=== PATIENT | female | born 1980 | race Caucasian/White ===

== ENCOUNTER 2019-04-02 12:01 | Emergency (ER) | payer OTHER, BC ==
[~2019-04-02] VITALS: Ht 154.9 cm; Wt 65.8 kg
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
[2019-04-02 13:08] VITALS: BP 130/84
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
--- OUTSIDE RECORDS SUMMARY | 2019-04-02 19:39 | XMS REPORT ---
Author Author Jocelyne Camarillo Organization [facility] Address [address] [place], [place] [address] Care Team Providers Care Detective Private Eye Name Role Phone Jocelyne Camarillo PCP Jocelyne Camarillo PreferredProvider Allergies and Adverse Reactions Name Reaction Notes Tylenol Plan of Treatment Planned Activity Comments Planned Date Planned Time Plan/Goal CBC With Auto Differential 09/09/2016 12:00 AM CMP (comprehensive metabolic panel) 09/09/2016 12:00 AM .Lipid Panel 09/09/2016 12:00 AM TSH 09/09/2016 12:00 AM Cardiovascular stress test 07/30/2017 12:00 AM Medications Active Name Start Date Estimated Completion Date SIG Comments metoprolol succinate 25 mg oral tablet extended release 24 hr 09/02/2017 take 1 tablet (25 mg) by oral route once daily Plavix 75 mg oral tablet 09/02/2017 take 1 tablet (75 mg) by oral route once daily rosuvastatin 20 mg oral tablet 09/02/2017 take 1 tablet (20 mg) by oral route once daily escitalopram oxalate 20 mg oral tablet 05/04/2018 TAKE 1 TABLET BY MOUTH EVERY DAY Voltaren 1 % topical gel 08/26/2018 apply 2 gram to the affected area(s) by topical route 4 times per day Synjardy XR 12.5-1,000 mg oral tablet, IR - ER, biphasic 24hr 09/22/2018 06/19/2019 take 2 tablets by oral route once daily in the morning with a meal for 90 days Lexapro 20 mg oral tablet 10/25/2018 04/23/2019 take 1 tablet (20 mg) by oral route once daily for 90 days Farxiga 10 mg oral tablet 01/03/2019 TAKE 1 TABLET (10 MG) BY ORAL ROUTE ONCE DAILY IN THE MORNING fenofibrate 160 mg oral tablet 01/05/2019 TAKE 1 TABLET (160 MG) BY ORAL ROUTE ONCE DAILY FOR 30 DAYS Trulicity 0.75 mg/0.5 mL subcutaneous pen injector 01/25/2019 INJECT 0.5 ML BY SUBCUTANEOUS ROUTE EVERY 7 DAYS IN THE ABDOMEN, THIGH, UPPER ARM ROTATING SITES meloxicam 15 mg oral tablet 03/11/2019 take 1 tablet (15 mg) by oral route once daily doxycycline hyclate 100 mg oral tablet 03/16/2019 03/30/2019 take 1 tablet by oral route 2 times a day for 14 days Name Start Date Expiration Date SIG Comments Zithromax Z-Nick 250 mg oral tablet 07/19/2010 07/24/2010 take 2 tablets (500 mg) by oral route once daily for 1 day then 1 tablet (250 mg) by oral route once daily for 4 days permethrin 5 % topical cream 07/12/2017 apply (thoroughly massage into skin from head to soles of feet) by topical route once leave on for 8-14 hr, then remove by thorough washing aspirin 81 mg oral tablet,chewable 07/30/2017 08/29/2017 chew 1 tablet (81 mg) by oral route once daily for 30 days diclofenac sodium 75 mg oral tablet,delayed release (DR/EC) 08/26/2018 09/25/2018 take 1 tablet (75 mg) by oral route 2 times per day for 30 days Zyrtec 10 mg oral tablet 09/08/2018 10/08/2018 take 1 tablet (10 mg) by oral route once daily for 30 days Flonase Allergy Relief 50 mcg/actuation nasal spray,suspension 09/08/2018 09/22/2018 spray 1 spray (50 mcg) in each nostril by intranasal route once daily for 14 days Discontinued Name Start Date Discontinued Date SIG Comments ibuprofen 800 mg oral tablet 09/13/2010 03/27/2011 take 1 tablet (800 mg) by oral route 3 times a day Ultram 50 mg oral tablet 09/13/2010 03/27/2011 take 1 tablet (50 mg) by oral route 4 times a day phentermine 37.5 mg oral tablet 09/13/2010 03/27/2011 take 1 tablet (37.5 mg) by oral route once daily before breakfast Treximet 85-500 mg oral tablet 03/27/2011 03/31/2011 take 1 tablet by oral route daily prn headaches and can repeat x 1 in 2 hours sumatriptan succinate 100 mg oral tablet 03/31/2011 12/21/2015 take 1 tablet (100 mg) by oral route once with fluids as early as possible after the onset of a migraine attack;may repeat after 2 hours if headache returns, not to exceed 200mg in 24hrs buspirone 7.5 mg oral tablet 12/21/2015 12/24/2015 take 1 tablet (7.5 mg) by oral route 2 times per day for 6 days escitalopram oxalate 10 mg oral tablet 03/26/2016 TAKE ONE TABLET BY MOUTH ONCE DAILY Xanax 0.25 mg oral tablet 09/09/2016 07/12/2017 take 1 tablet by oral route daily as needed doxycycline monohydrate 100 mg oral tablet 04/30/2017 07/12/2017 take 1 tablet (100 mg) by oral route every 12 hours for 7 days mupirocin 2 % topical ointment 04/30/2017 07/12/2017 apply a small amount to the affected area by topical route 3 times per day for 5 days Medrol (Nick) 4 mg oral tablets,dose pack 07/12/2017 07/28/2017 take as directed Crestor 20 mg oral tablet 07/30/2017 09/02/2017 take 1 tablet (20 mg) by oral route once daily at bedtime for 30 days Synjardy XR 25-1,000 mg oral tablet, IR - ER, biphasic 24hr 09/02/2017 09/02/2017 take 1 tablet by oral route once daily in the morning with a meal Invokamet XR 50-1,000 mg oral tablet, IR - ER, biphasic 24hr 03/23/2018 08/26/2018 TAKE 2 TABLETS BY MOUTH ONCE DAILY IN THE MORNING WITH A MEAL change to Synjardy due to Insurance Problem List Description Status Onset Anxiety Active 09/09/2016 Major depressive disorder with single episode, in full remission Active 09/09/2016 Type 2 diabetes mellitus without complication, without long-term current use of insulin Active 09/02/2017 Hypertriglyceridemia Active 09/02/2017 CAD (coronary artery disease) Active 09/02/2017 Vital Signs Date Time BP-Sys(mm[Hg] BP-Juliette(mm[Hg]) HR(bpm) RR(rpm) Temp WT HT HC BMI BSA BMI Percentile O2 Sat(%) 03/08/2019 2:22:00 PM 130 mmHg 72 mmHg 95 bpm 18 rpm 97.9 F 153 lbs 61 in 28.9088 kg/m 1.7283 m 98 % 09/08/2018 5:20:00 PM 136 mmHg 76 mmHg 86 bpm 98.8 F 160 lbs 61 in 30.23 kg/m2 1.77 m2 97 % 08/26/2018 11:25:00 AM 128 mmHg 66 mmHg 81 bpm 18 rpm 98.1 F 158.2 lbs 61 in 29.8913 kg/m 1.7574 m 98 % 09/02/2017 11:06:00 AM 128 mmHg 76 mmHg 92 bpm 18 rpm 96.6 F 158.125 lbs 61 in 29.88 kg/m2 1.76 m2 97 % 07/30/2017 9:56:00 AM 121 mmHg 67 mmHg 93 bpm 18 rpm 97.3 F 158 lbs 61 in 29.8535 kg/m 1.7563 m 96 % 07/28/2017 10:13:00 AM 123 mmHg 72 mmHg 87 bpm 18 rpm 97.6 F 158 lbs 61 in 29.85 kg/m2 1.76 m2 97 % 07/12/2017 1:24:00 PM 101 bpm 97.1 F 156.375 lbs 96 % 04/30/2017 11:37:00 AM 136 mmHg 84 mmHg 97 bpm 18 rpm 97.5 F 156 lbs 61 in 29.4756 kg/m 1.7451 m 97 % 09/09/2016 8:34:00 AM 126 mmHg 70 mmHg 84 bpm 18 rpm 97.4 F 161.375 lbs 61 in 30.49 kg/m2 1.77 m2 96 % 03/26/2016 10:54:00 AM 130 mmHg 72 mmHg 99 bpm 18 rpm 98.9 F 161.125 lbs 61 in 30.444 kg/m 1.7736 m 97 % 12/24/2015 9:53:00 AM 130 mmHg 90 mmHg 90 bpm 16 rpm 97.3 F 157 lbs 61 in 29.66 kg/m2 1.75 m2 99 % 12/21/2015 5:03:00 PM 162 mmHg 90 mmHg 105 bpm 20 rpm 98.4 F 156 lbs 61 in 29.4756 kg/m 1.7451 m 98 % 09/13/2010 1:28:00 PM 132 mmHg 72 mmHg 68 bpm 16 rpm 97.7 F 161.5 lbs 61 in 30.51 kg/m2 1.78 m2 05/22/2010 1:35:00 PM 128 mmHg 84 mmHg 64 bpm 16 rpm 98.2 F 168.125 lbs Social History Name Description Comments Tobacco Never smoker No Tobacco Use 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 History of Procedures Date Ordered Description Order Status 07/28/2017 12:00 AM COMPLETE CBC W/AUTO DIFF WBC Reviewed 07/28/2017 12:00 AM COMPREHEN METABOLIC PANEL Reviewed 07/28/2017 12:00 AM LIPID PANEL Reviewed 07/28/2017 12:00 AM GLYCOSYLATED HEMOGLOBIN TEST Reviewed 07/28/2017 12:00 AM ASSAY OF TROPONIN QUANT Reviewed 07/28/2017 12:00 AM ELECTROCARDIOGRAM TRACING Reviewed 07/28/2017 12:00 AM ASSAY THYROID STIM HORMONE Reviewed 09/08/2018 12:00 AM CULTURE SCREEN ONLY Returned 09/08/2018 6:19 PM STREP A ASSAY W/OPTIC Reviewed 03/08/2019 12:00 AM COMPLETE CBC W/AUTO DIFF WBC Returned 03/08/2019 12:00 AM COMPREHEN METABOLIC PANEL Returned 03/08/2019 12:00 AM Tick Panel Returned 03/08/2019 12:00 AM C-REACTIVE PROTEIN Returned 03/08/2019 12:00 AM Toradol 60 Mg Injection Reviewed Results Summary Date and Description Results 09/08/2018 6:19 PM STREPTOCOCCUS, GROUP A CULTURE negative History Of Immunizations Not available. History of Past Illness Name Date of Onset Comments *No known medical problems Pain in joint; lower leg/knee May 22 2010 1:35PM Lumbago Sep 13 2010 1:28PM Dietary Counseling Sep 13 2010 1:28PM Exercise Counseling Sep 13 2010 1:28PM Anxiety 09/09/2016 Major depressive disorder with single episode, in full remission 09/09/2016 Type 2 diabetes mellitus without complication, without long-term current use of insulin 09/02/2017 Hypertriglyceridemia 09/02/2017 CAD (coronary artery disease) 09/02/2017 Anxiety as acute reaction to exceptional stress Dec 21 2015 5:05PM Elevated blood pressure Dec 24 2015 9:58AM Anxiety Dec 24 2015 9:58AM Other depression Mar 26 2016 10:56AM Screening for ischemic heart disease Sep 09 2016 8:25AM Major depressive disorder with single episode, in full remission Sep 09 2016 8:25AM Anxiety Sep 09 2016 8:25AM Other fatigue Sep 09 2016 8:25AM Skin infection Apr 30 2017 11:38AM Dermatitis Jul 12 2017 1:26PM Other chest pain Jul 28 2017 10:14AM Chronic fatigue Jul 28 2017 10:14AM Hyperglycemia Jul 28 2017 10:14AM Family history of early CAD Jul 28 2017 10:14AM Anxiety Jul 28 2017 10:14AM Major depressive disorder with single episode, in full remission Jul 28 2017 10:14AM Other chest pain Jul 30 2017 9:59AM Diabetes Mellitus, Type II Jul 30 2017 9:59AM Hypertriglyceridemia Jul 30 2017 9:59AM Family history of [place] (myocardial infarction) Jul 30 2017 9:59AM Dizziness Jul 30 2017 9:59AM Fatigue, unspecified type Jul 30 2017 9:59AM Type 2 diabetes mellitus without complication, without long-term current use of insulin Sep 02 2017 11:07AM Anxiety Sep 02 2017 11:07AM Hypertriglyceridemia Sep 02 2017 11:07AM CAD (coronary artery disease) Sep 02 2017 11:07AM Diabetes Mellitus, Type II Aug 26 2018 11:27AM Acute pain of left knee Aug 26 2018 11:27AM Hypertriglyceridemia Aug 26 2018 11:27AM Type 2 diabetes mellitus without complication, without long-term current use of insulin Aug 26 2018 11:27AM Acute nasopharyngitis Sep 08 2018 5:22PM Sore throat Sep 08 2018 5:22PM Fever Mar 08 2019 2:25PM Neck pain Mar 08 2019 2:25PM Headache Mar 08 2019 2:25PM Bitten or stung by nonvenomous insect and other nonvenomous arthropods, initial encounter Mar 08 2019 2:25PM Payers Insurance Name Company Name Plan Name Plan Number Policy Number Policy Group Number Start Date [facility] [id number] N/A [facility] [id number] Friday, 2009 History of Encounters Visit Date Visit Type Provider 03/08/2019 Office visit Jocelyne Camarillo APRN 09/08/2018 Office visit Radha Andrade LOAN CONSULTANT 08/26/2018 Office visit Jocelyne Camarillo APRN 09/02/2017 Office visit Jocelnye Camarillo APRN 07/30/2017 [facility] Priscilla Orosco MD 07/30/2017 Office visit 07/30/2017 Office visit Jocelyne Camarillo APRN 07/28/2017 Office visit Jocelyne Camarillo APRN 07/12/2017 Office visit Edvin Leos NP 04/30/2017 Office visit Jocelyne Camarillo APRN 09/09/2016 Office visit Jocelyne Camarillo APRN 03/26/2016 Office visit Jocelyne Camarillo LOAN CONSULTANT 12/24/2015 Office visit Jocelyne Camarillo LOAN CONSULTANT 12/21/2015 Office visit Kleber Baker PA-C 09/13/2010 Office visit Camilla RANGEL 05/22/2010 Office visit Camilla RANGEL 07/20/2009 Office visit Joseluis Moore MD 06/15/2009 Surgery Joseluis Moore MD 06/04/2009 Voided Joseluis Moore MD 05/30/2009 Laboratory Padmini Nur MD 05/29/2009 Office visit Joseluis Moore MD 05/25/2009 Office visit Joseluis Moore MD 05/24/2009 Office visit Camilla RANGEL 05/15/2009 Office visit Ashleigh Murillo MD
--- OUTSIDE RECORDS SUMMARY | 2019-04-02 19:40 | XMS REPORT ---
Author Author Jocelyne Camarillo Organization [facility] Address [address] [place], [place] [id number] Care Team Providers Care Barrel Scraper Name Role Phone Jocelyne Camarillo PCP Jocelyne [...] (20 mg) by oral route once daily Trulicity 0.75 mg/0.5 mL subcutaneous pen injector 09/02/2017 inject 0.5 milliliter (0.75 mg) by subcutaneous route every 7 days in the abdomen, thigh, or upper arm rotating injection sites escitalopram oxalate 20 mg oral tablet 05/04/2018 TAKE 1 TABLET BY MOUTH EVERY DAY fenofibrate 160 mg oral tablet 07/19/2018 TAKE 1 TABLET (160 MG) BY ORAL ROUTE ONCE DAILY FOR 30 DAYS Lexapro 20 mg oral tablet 08/02/2018 10/31/2018 take 1 tablet (20 mg) by oral route once daily for 90 days diclofenac sodium 75 mg oral tablet,delayed release (DR/EC) 08/26/2018 09/25/2018 take 1 tablet (75 mg) by oral route 2 times per day for 30 days Voltaren 1 % topical gel 08/26/2018 apply 2 gram to the affected area(s) by topical route 4 times per day Synjardy XR 12.5-1,000 mg oral tablet, IR - ER, biphasic 24hr 08/26/2018 05/23/2019 take 2 tablets by oral route once daily in the morning with a meal for 90 days Name Start Date Expiration Date SIG [...] oral route once daily for 30 days Discontinued Name Start Date Discontinued Date [...] HC BMI BSA BMI Percentile O2 Sat(%) 08/26/2018 11:25:00 AM 128 mmHg 66 mmHg [...] No Tobacco Use 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 History Of Immunizations Not available. History of [...] Jul 30 2017 9:59AM Family history of [place] (myocardial infarction) Jul 30 2017 9:59AM Dizziness [...] use of insulin Aug 26 2018 11:27AM Payers Insurance Name Company Name Plan Name Plan Number Policy Number Policy Group Number Start Date [facility] [place] [id number] N[id number] Friday, 2009 History of Encounters Visit Date Visit Type Provider 08/26/2018 Office visit Jocelyne Camarillo APRN 09/02/2017 Office visit Jocelyne Camarillo APRN 07/30/2017 [facility] Priscilla Orosco MD 07/30/2017 Office visit 07/30/2017 Office visit Jocelyne Camarillo GAS PIPE LAYER 07/28/2017 Office visit Jocelyne Camarillo GAS PIPE LAYER 07/12/2017 Office visit Edvin Leos NP 04/30/2017 Office visit Jocelyne Camarillo GAS PIPE LAYER 09/09/2016 Office visit Jocelyne Camarillo GAS PIPE LAYER 03/26/2016 Office visit Jocelyne Camarillo GAS PIPE LAYER 12/24/2015 Office visit Jocelyne Camarillo GAS PIPE LAYER 12/21/2015 Office visit Kleber MENAC 09/13/2010 Office visit Camilla RANGEL 05/22/2010 Office visit Camilla RANGEL 07/20/2009 Office visit Joseluis Moore MD 06/15/2009 Surgery Joseluis Moore MD 06/04/2009 Voided Joseluis Moore MD 05/30/2009 Laboratory Padmini Nur MD 05/29/2009 Office visit Joseluis Moore MD 05/25/2009 Office visit Joseluis Moore MD 05/24/2009 Office visit Camilla RANGEL 05/15/2009 Office visit Ashleigh Murillo MD
--- OUTSIDE RECORDS SUMMARY | 2019-04-02 19:40 | XMS REPORT ---
Author Author Jocelyne Camarillo Organization 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 History of Procedures Date Ordered Description Order [...] COMPREHEN METABOLIC PANEL Returned 03/08/2019 12:00 AM C-REACTIVE PROTEIN Returned Results Summary Date and Description Results 09/08/2018 [...] Jul 30 2017 9:59AM Family history of [place] (myocardial infarction) Jul 30 2017 9:59AM Dizziness [...] Number Policy Group Number Start Date [facility] [id number] [facility] [id number] Friday, 2009 History of Encounters Visit Date Visit Type Provider 03/08/2019 Office visit Jocelyne Camarillo APRN 09/08/2018 Office visit Radha Andrade AUTOMOTIVE SALES EXECUTIVE 08/26/2018 Office visit Jocelyne Camarillo AUTOMOTIVE SALES EXECUTIVE 09/02/2017 Office visit Jocelyne Camarillo APRN 07/30/2017 [facility] Priscilla Orosco MD 07/30/2017 Office visit 07/30/2017 Office visit Jocelyne Camarillo AUTOMOTIVE SALES EXECUTIVE 07/28/2017 Office visit Jocelyne Camarillo APRN 07/12/2017 Office visit dEvin Leos NP 04/30/2017 Office visit Jocelyne Camarillo AUTOMOTIVE SALES EXECUTIVE 09/09/2016 Office visit Jocelyne Camarillo AUTOMOTIVE SALES EXECUTIVE 03/26/2016 Office visit Jocelyne Camarillo APRN 12/24/2015 Office visit Jocelyne Camarillo APRN 12/21/2015 Office visit Kleber Baker PA-C 09/13/2010 [...]
--- OUTSIDE RECORDS SUMMARY | 2019-04-02 19:40 | XMS REPORT ---
Author Author Radha Andrade [facility] Address [address] [place], [place] [address] Care Team Providers Care Endodontist Name Role Phone Radha Andrade PCP Jocelyne Camarillo PreferredProvider Allergies and Adverse Reactions Name Reaction Notes Tylenol Plan of Treatment Planned Activity Comments Planned Date Planned Time Plan/Goal CBC With Auto Differential 09/09/2016 12:00 AM CMP (comprehensive metabolic panel) 09/09/2016 12:00 AM .Lipid Panel 09/09/2016 12:00 AM TSH 09/09/2016 12:00 AM Cardiovascular stress test 07/30/2017 12:00 AM Throat culture and sensitivity 09/08/2018 12:00 AM Medications Active Name Start Date [...] morning with a meal for 90 days Zyrtec 10 mg oral tablet 09/08/2018 10/08/2018 take 1 tablet (10 mg) by oral route once daily for 30 days Flonase Allergy Relief 50 mcg/actuation nasal spray,suspension 09/08/2018 09/22/2018 spray 1 spray (50 mcg) in each nostril by intranasal route once daily for 14 days Name Start Date Expiration [...] HC BMI BSA BMI Percentile O2 Sat(%) 09/08/2018 5:20:00 PM 136 mmHg 76 mmHg 86 bpm 98.8 F 160 lbs 61 in 30.2314 kg/m 1.7674 m 97 % 08/26/2018 11:25:00 AM 128 mmHg 66 mmHg 81 bpm 18 rpm 98.1 F 158.2 lbs 61 in 29.89 kg/m2 1.76 m2 98 % 09/02/2017 11:06:00 AM 128 mmHg 76 mmHg 92 bpm 18 rpm 96.6 F 158.125 lbs 61 in 29.8772 kg/m 1.757 m 97 % 07/30/2017 9:56:00 AM 121 mmHg 67 mmHg 93 bpm 18 rpm 97.3 F 158 lbs 61 in 29.85 kg/m2 1.76 m2 96 % 07/28/2017 10:13:00 AM 123 mmHg [...] No Tobacco Use Living with significant other Programs Assistant History of Procedures Date Ordered Description Order Status 07/28/2017 12:00 AM COMPLETE CBC W/AUTO DIFF WBC Reviewed 07/28/2017 12:00 AM COMPREHEN METABOLIC PANEL Reviewed 07/28/2017 12:00 AM LIPID PANEL Reviewed 07/28/2017 12:00 AM GLYCOSYLATED HEMOGLOBIN TEST Reviewed 07/28/2017 12:00 AM ASSAY OF TROPONIN QUANT Reviewed 07/28/2017 12:00 AM ELECTROCARDIOGRAM TRACING Reviewed 07/28/2017 12:00 AM ASSAY THYROID STIM HORMONE Reviewed 09/08/2018 6:19 PM STREP A ASSAY W/OPTIC Reviewed Results Summary Date and Description Results [...] Jul 30 2017 9:59AM Family history of [place] (myocardial infarction) Jul 30 2017 9:59AM Dizziness [...] 5:22PM Sore throat Sep 08 2018 5:22PM Payers Insurance Name Company Name Plan Name Plan Number Policy Number Policy Group Number Start Date [employer] [facility] [place] [id number] N/A [employer] [facility] [facility] [place] [id number] Friday, 2009 History of Encounters Visit Date Visit Type Provider 09/08/2018 Office visit Radha Andrade ORACLE APEX DEVELOPER 08/26/2018 Office visit Jocelyne Camarillo ORACLE APEX DEVELOPER 09/02/2017 Office visit Jocelyne Camarillo ORACLE APEX DEVELOPER 07/30/2017 [facility] Priscilla Orosco MD 07/30/2017 Office visit 07/30/2017 Office visit Jocelyne Camarillo ORACLE APEX DEVELOPER 07/28/2017 Office visit Jocelyne Camarillo ORACLE APEX DEVELOPER 07/12/2017 Office visit Edvin Leos NP 04/30/2017 Office visit Jocelyne Camarillo ORACLE APEX DEVELOPER 09/09/2016 Office visit Jocelyne Camarillo ORACLE APEX DEVELOPER 03/26/2016 Office visit Jocelyne Camarillo ORACLE APEX DEVELOPER 12/24/2015 Office visit Jocelyne Camarillo ORACLE APEX DEVELOPER 12/21/2015 Office visit Kleber Baker PA-C 09/13/2010 Office visit Camilla RANGEL 05/22/2010 Office visit Camilla RANGEL 07/20/2009 Office visit Joseluis Moore MD 06/15/2009 Surgery Joseluis oMore MD 06/04/2009 Voided Joseluis Moore MD 05/30/2009 Laboratory Padmini Nur MD 05/29/2009 Office visit Joseluis Moore MD 05/25/2009 Office visit Joseluis Moore MD 05/24/2009 Office visit Camilla RANGEL 05/15/2009 Office visit Ashleigh Murillo MD
--- OUTSIDE RECORDS SUMMARY | 2019-04-02 19:41 | XMS REPORT ---
Author Author Jocelyne Camarillo Organization [facility] Address [address] [place], [place] [id number] Care Team Providers Care Adjunct Instructor Name Role Phone Jocelyne Camarillo PCP Unavailable Allergies and Adverse Reactions Name Reaction Notes Tylenol Plan of Treatment Not available. Medications Active Name Start Date Estimated Completion Date SIG Comments Lexapro 10 mg oral tablet 12/24/2015 take 1 tablet by oral route daily Xanax 0.25 mg oral tablet 12/24/2015 take 1 tablet by oral route daily as needed Name Start Date Expiration Date SIG Comments Zithromax Z-Nick 250 mg oral tablet 07/19/2010 07/24/2010 take 2 tablets (500 mg) by oral route once daily for 1 day then 1 tablet (250 mg) by oral route once daily for 4 days Discontinued Name Start Date Discontinued Date [...] 2 times per day for 6 days Problem List Not available. Vital Signs Date Time BP-Sys(mm[Hg] BP-Juliette(mm[Hg]) HR(bpm) RR(rpm) Temp WT HT HC BMI BSA BMI Percentile O2 Sat(%) 12/24/2015 9:53:00 AM 130 mmHg 90 mmHg [...] No Tobacco Use Living with significant other Assistant Women'S Tennis Coach History of Procedures Not available. Results Summary Not available. History Of Immunizations Not available. History of Past Illness Name Date of Onset Comments *No known medical problems Pain in joint; lower leg/knee May 22 2010 1:35PM Lumbago Sep 13 2010 1:28PM Dietary Counseling Sep 13 2010 1:28PM Exercise Counseling Sep 13 2010 1:28PM Anxiety as acute reaction to exceptional stress Dec 21 2015 5:05PM Elevated blood pressure Dec 24 2015 9:58AM Anxiety Dec 24 2015 9:58AM Payers Insurance Name Company Name Plan Name Plan Number Policy Number Policy Group Number Start Date [facility] [id number] N/A [facility] [id number] Friday, 2009 History of Encounters Visit Date Visit Type Provider 12/24/2015 Office visit Jocelyne Camarillo SLITTING AND SHIPPING SUPERVISOR 12/21/2015 Office visit Kleber Baker PA-C 09/13/2010 [...]
--- OUTSIDE RECORDS SUMMARY | 2019-04-02 19:41 | XMS REPORT ---
Author Author Jocelyne Camarillo Organization [facility] Address [address] [place], [place] [address] Care Team Providers Care License Registration Examiner Name Role Phone Jocelyne Camarillo PCP Jocelyne Camarillo PreferredProvider Allergies and Adverse Reactions Name Reaction Notes Tylenol Plan of Treatment Planned Activity Comments Planned Date Planned Time Plan/Goal CBC With Auto Differential 09/09/2016 12:00 AM CMP (comprehensive metabolic panel) 09/09/2016 12:00 AM .Lipid Panel 09/09/2016 12:00 AM TSH 09/09/2016 12:00 AM EKG. 07/28/2017 12:00 AM Cardiovascular stress test 07/30/2017 12:00 AM Medications Active Name Start Date Estimated Completion Date SIG Comments fenofibrate 160 mg oral tablet 07/30/2017 take 1 tablet (160 mg) by oral route once daily for 30 days Lexapro 20 mg oral tablet 07/30/2017 take 1 tablet (20 mg) by oral route once daily for 90 days metoprolol succinate 25 mg oral tablet extended [...] thigh, or upper arm rotating injection sites Invokamet XR 50-1,000 mg oral tablet, IR - ER, biphasic 24hr 09/02/2017 take 2 tablets by oral route once daily in the morning with a meal for 30 days Name Start Date Expiration Date SIG [...] daily in the morning with a meal Problem List Description Status Onset Anxiety Active 09/09/2016 Major depressive disorder with single episode, in full remission Active 09/09/2016 Type 2 diabetes mellitus without complication, without long-term current use of insulin Active 09/02/2017 Hypertriglyceridemia Active 09/02/2017 CAD (coronary artery disease) Active 09/02/2017 Vital Signs Date Time BP-Sys(mm[Hg] BP-Juliette(mm[Hg]) HR(bpm) RR(rpm) Temp WT HT HC BMI BSA BMI Percentile O2 Sat(%) 09/02/2017 11:06:00 AM 128 mmHg 76 mmHg [...] No Tobacco Use Living with significant other Fruit Receiver History of Procedures Date Ordered Description Order Status 07/28/2017 12:00 AM COMPLETE CBC W/AUTO DIFF WBC Returned 07/28/2017 12:00 AM COMPREHEN METABOLIC PANEL Returned 07/28/2017 12:00 AM LIPID PANEL Returned 07/28/2017 12:00 AM GLYCOSYLATED HEMOGLOBIN TEST Returned 07/28/2017 12:00 AM ASSAY OF TROPONIN QUANT Returned 07/28/2017 12:00 AM ASSAY THYROID STIM HORMONE Returned Results Summary Not available. History Of Immunizations [...] Jul 30 2017 9:59AM Family history of [place] (myocardial infarction) Jul 30 2017 9:59AM Dizziness Jul 30 2017 9:59AM Fatigue, unspecified type Jul 30 2017 9:59AM Type 2 diabetes mellitus without complication, without long-term current use of insulin Sep 02 2017 11:07AM Anxiety Sep 02 2017 11:07AM Hypertriglyceridemia Sep 02 2017 11:07AM CAD (coronary artery disease) Sep 02 2017 11:07AM Payers Insurance Name Company Name Plan Name Plan Number Policy Number Policy Group Number Start Date [facility] [place] [id number] N/A [facility] [place] [id number] Friday, 2009 History of Encounters Visit Date Visit Type Provider 09/02/2017 Office visit Jocelyne Camarillo APRN 07/30/2017 [facility] Priscilla Orosco MD 07/30/2017 Office visit 07/30/2017 Office visit Jocelyne Camarillo APRN 07/28/2017 Office visit Jocelyne Camarillo APRN 07/12/2017 Office visit Edvin Leos NP 04/30/2017 Office visit Jocelyne Camarillo APRN 09/09/2016 Office visit Jocelyne Camarillo APRN 03/26/2016 Office visit Jocelyne Camarillo APRN 12/24/2015 [...]
--- OUTSIDE RECORDS SUMMARY | 2019-04-02 19:41 | XMS REPORT ---
Author Author Jocelyne Camarillo Organization [facility] Address [address] [place], [place] [id number] Care Team Providers Care Vacuum Pan Operator Name Role Phone Jocelyne Camarillo PCP Unavailable Jocelyne Camarillo PreferredProvider Unavailable Allergies and Adverse Reactions Name Reaction Notes Tylenol Plan of Treatment Planned Activity Comments Planned Date Planned Time Plan/Goal CBC With Auto Differential 09/09/2016 12:00 AM CMP (comprehensive metabolic panel) 09/09/2016 12:00 AM .Lipid Panel 09/09/2016 12:00 AM TSH 09/09/2016 12:00 AM Medications Active Name Start Date Estimated Completion Date SIG Comments Lexapro 10 mg oral tablet 03/26/2016 03/21/2017 take 1 tablet by oral route daily for 90 days Xanax 0.25 mg oral tablet 09/09/2016 take 1 tablet by oral route daily [...] TAKE ONE TABLET BY MOUTH ONCE DAILY Problem List Description Status Onset Anxiety Active 09/09/2016 Major depressive disorder with single episode, in full remission Active 09/09/2016 Vital Signs Date Time BP-Sys(mm[Hg] BP-Juliette(mm[Hg]) HR(bpm) RR(rpm) Temp WT HT HC BMI BSA BMI Percentile O2 Sat(%) 09/09/2016 8:34:00 AM 126 mmHg 70 mmHg [...] No Tobacco Use Living with significant other 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 Results Summary [...] with single episode, in full remission 09/09/2016 Anxiety as acute reaction to exceptional stress Dec 21 2015 5:05PM Elevated blood pressure Dec 24 2015 9:58AM Anxiety Dec 24 2015 9:58AM Other depression Mar 26 2016 10:56AM Screening for ischemic heart disease Sep 09 2016 8:25AM Major depressive disorder with single episode, in full remission Sep 09 2016 8:25AM Anxiety Sep 09 2016 8:25AM Other fatigue Sep 09 2016 8:25AM Payers Insurance Name Company Name Plan Name Plan Number Policy Number Policy Group Number Start Date [facility] [place] [id number] N/A [facility] [id number] Friday, 2009 History of Encounters Visit Date Visit Type Provider 09/09/2016 Office visit Jocelyne Camarillo APRN 03/26/2016 Office visit Jocelyne Camarillo APRN 12/24/2015 Office visit Jocelyne Camarillo TUBE OPERATOR 12/21/2015 Office visit Kleber Baker PA-C 09/13/2010 Office visit Camilla RANGEL 05/22/2010 Office visit Camilla RANGEL 07/20/2009 Office visit Joselius Moore MD 06/15/2009 Surgery Joseluis Moore MD 06/04/2009 Voided Joseluis Moore MD 05/30/2009 Laboratory Padmini Nur MD 05/29/2009 Office visit Joseluis Moore MD 05/25/2009 Office visit Joseluis Moore MD 05/24/2009 Office visit Camilla RANGEL 05/15/2009 Office visit Ashleigh Murillo MD
--- OUTSIDE RECORDS SUMMARY | 2019-04-02 19:41 | XMS REPORT ---
Author Author Jocelyne Camarillo Organization [facility] Address [address] [place], [place] [phone] Care Team Providers Care Senior Qa Analyst Name Role Phone Jocelyne Camarillo PCP Jocelyne [...] Start Date Estimated Completion Date SIG Comments Crestor 20 mg oral tablet 07/30/2017 take 1 tablet (20 mg) by oral route once daily at bedtime for 30 days fenofibrate 160 mg oral tablet 07/30/2017 take 1 tablet (160 mg) by oral route once daily for 30 days aspirin 81 mg oral tablet,chewable 07/30/2017 08/29/2017 chew 1 tablet (81 mg) by oral route once daily for 30 days Trulicity 0.75 mg/0.5 mL subcutaneous pen injector 07/30/2017 inject 0.5 milliliter (0.75 mg) by subcutaneous route every 7 days in the abdomen, thigh, or upper arm rotating injection sites Synjardy XR 25-1,000 mg oral tablet, IR - ER, biphasic 24hr 07/30/2017 take 1 tablet by oral route once daily in the morning with a meal Lexapro 20 mg oral tablet 07/30/2017 take 1 tablet (20 mg) by oral route once daily for 90 days Name Start Date Expiration [...] 8-14 hr, then remove by thorough washing Discontinued Name Start Date Discontinued Date SIG [...] tablets,dose pack 07/12/2017 07/28/2017 take as directed Problem List Description Status Onset Anxiety Active 09/09/2016 Major depressive disorder with single episode, in full remission Active 09/09/2016 Vital Signs Date Time BP-Sys(mm[Hg] BP-Juliette(mm[Hg]) HR(bpm) RR(rpm) Temp WT HT HC BMI BSA BMI Percentile O2 Sat(%) 07/30/2017 9:56:00 AM 121 mmHg 67 mmHg 93 bpm 18 rpm 97.3 F 158 lbs 61 in 29.85 kg/m2 1.76 m2 96 % 07/28/2017 10:13:00 AM 123 mmHg 72 mmHg 87 bpm 18 rpm 97.6 F 158 lbs 61 in 29.8535 kg/m 1.7563 m 97 % 07/12/2017 1:24:00 PM 101 bpm [...] No Tobacco Use Living with significant other Hospital Corpsman History of Procedures Date Ordered Description Order [...] Jul 30 2017 9:59AM Family history of [place] (myocardial infarction) Jul 30 2017 9:59AM Dizziness Jul 30 2017 9:59AM Fatigue, unspecified type Jul 30 2017 9:59AM Payers Insurance Name Company Name Plan Name Plan Number Policy Number Policy Group Number Start Date [facility] [id number] N/A [facility] [id number] Friday, 2009 History of Encounters Visit Date Visit Type Provider 07/30/2017 Office visit 07/30/2017 Office visit Jocelyne [...]
--- OUTSIDE RECORDS SUMMARY | 2019-04-02 19:41 | XMS REPORT ---
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 Results Summary [...] to exceptional stress Dec 21 2015 5:05PM Payers Insurance Name Company Name Plan Name Plan Number Policy Number Policy Group Number Start Date [facility] [id number] N/A [employer] [id number] Friday, 2009 History of Encounters Visit Date Visit Type Provider 12/24/2015 Office visit Jocelyne Camarillo PRIMER CHARGING TOOL SETTER 12/21/2015 Office visit Kleber Baker PA-C 09/13/2010 [...]
--- OUTSIDE RECORDS SUMMARY | 2019-04-02 19:42 | XMS REPORT ---
Author Author Kleber Baker [facility] Address [address] [place], [place] [phone] Care Team Providers Care Coal Equipment Operator Name Role Phone Kleber Baker PCP Unavailable Allergies and Adverse Reactions Name Reaction Notes Tylenol Plan of Treatment Not available. Medications Active Name Start Date Estimated Completion Date SIG Comments buspirone 7.5 mg oral tablet 12/21/2015 12/27/2015 take 1 tablet (7.5 mg) by oral route 2 times per day for 6 days Name Start Date Expiration Date SIG [...] returns, not to exceed 200mg in 24hrs Problem List Not available. Vital Signs Date Time BP-Sys(mm[Hg] BP-Juliette(mm[Hg]) HR(bpm) RR(rpm) Temp WT HT HC BMI BSA BMI Percentile O2 Sat(%) 12/21/2015 5:03:00 PM 162 mmHg 90 mmHg 105 bpm 20 rpm 98.4 F 156 lbs 61 in 29.48 kg/m2 1.75 m2 98 % 09/13/2010 1:28:00 PM 132 mmHg 72 mmHg 68 bpm 16 rpm 97.7 F 161.5 lbs 61 in 30.5148 kg/m 1.7756 m 05/22/2010 1:35:00 PM 128 mmHg 84 mmHg 64 bpm 16 rpm 98.2 F 168.125 lbs Social History Name Description Comments Tobacco Never smoker No Tobacco Use Living with significant other Binder Stripper Hand History of Procedures Not available. Results Summary [...] Group Number Start Date [facility] [facility] [place] [id number] N/A [facility] [facility] [id number] Friday, 2009 History of Encounters Visit Date Visit Type Provider 12/21/2015 Office visit Kleber Baker PA-C 09/13/2010 [...]
--- OUTSIDE RECORDS SUMMARY | 2019-04-02 19:42 | XMS REPORT ---
Author Author Jocelyne Camarillo Organization [facility] Address [address] [place], [place] [address] Care Team Providers Care Corrugator Helper Name Role Phone Jocelyne Camarillo PCP Unavailable Jocelyne Camarillo PreferredProvider Unavailable Allergies and Adverse Reactions Name Reaction Notes Tylenol Plan of Treatment Planned Activity Comments Planned Date Planned Time Plan/Goal CBC With Auto Differential 09/09/2016 12:00 AM CMP (comprehensive metabolic panel) 09/09/2016 12:00 AM .Lipid Panel 09/09/2016 12:00 AM TSH 09/09/2016 12:00 AM Medications Active Name Start Date Estimated Completion Date SIG Comments Xanax 0.25 mg oral tablet 09/09/2016 take 1 tablet by oral route daily as needed Lexapro 10 mg oral tablet 03/16/2017 09/12/2017 take 1 tablet by oral route daily for 90 days doxycycline monohydrate 100 mg oral tablet 04/30/2017 take 1 tablet (100 mg) by oral route every 12 hours for 7 days mupirocin 2 % topical ointment 04/30/2017 apply a small amount to the affected area by topical route 3 times per day for 5 days Name Start Date Expiration Date SIG [...] HC BMI BSA BMI Percentile O2 Sat(%) 04/30/2017 11:37:00 AM 136 mmHg 84 mmHg 97 bpm 18 rpm 97.5 F 156 lbs 61 in 29.48 kg/m2 1.75 m2 97 % 09/09/2016 8:34:00 AM 126 mmHg 70 mmHg 84 bpm 18 rpm 97.4 F 161.375 lbs 61 in 30.4912 kg/m 1.7749 m 96 % 03/26/2016 10:54:00 AM 130 mmHg 72 mmHg 99 bpm 18 rpm 98.9 F 161.125 lbs 61 in 30.44 kg/m2 1.77 m2 97 % 12/24/2015 9:53:00 AM 130 mmHg 90 mmHg 90 bpm 16 rpm 97.3 F 157 lbs 61 in 29.6646 kg/m 1.7507 m 99 % 12/21/2015 5:03:00 PM 162 mmHg [...] No Tobacco Use Living with significant other 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 Results Summary [...] 8:25AM Skin infection Apr 30 2017 11:38AM Payers Insurance Name Company Name Plan Name Plan Number Policy Number Policy Group Number Start Date [facility] [id number] N/A [employer] [facility] [id number] Friday, 2009 History of Encounters Visit Date Visit Type Provider 04/30/2017 Office visit Jocelyne Camarillo APRN 09/09/2016 Office visit Jocelyne Camarillo APRN 03/26/2016 Office visit Jocelyne Camarillo APRN 12/24/2015 Office visit Jocelyne Camarillo PLANER OFFBEARER 12/21/2015 Office visit Kleber Baker PA-C 09/13/2010 [...]
--- OUTSIDE RECORDS SUMMARY | 2019-04-02 19:42 | XMS REPORT ---
Author Author Jocelyne Camarillo Organization [facility] Address [address] [place], [place] [phone] Care Team Providers Care Rivet Maker Name Role Phone Jocelyne Camarillo PCP Unavailable Allergies and Adverse Reactions Name Reaction Notes Tylenol Plan of Treatment Not available. Medications Active Name Start Date Estimated Completion Date SIG Comments Xanax 0.25 mg oral tablet 12/24/2015 take 1 tablet by oral route daily as needed Lexapro 10 mg oral tablet 03/26/2016 03/21/2017 take 1 tablet by oral route daily for 90 days Name Start Date [...] TABLET BY MOUTH ONCE DAILY Problem List Not available. 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 Results Summary [...] 9:58AM Other depression Mar 26 2016 10:56AM Payers Insurance Name Company Name Plan Name Plan Number Policy Number Policy Group Number Start Date [facility] [id number] N/A [facility] [id number] Friday, 2009 History of Encounters Visit Date Visit Type Provider 03/26/2016 Office visit Jocelyne Camarillo APRN 12/24/2015 Office visit Jocelyne Camarillo APRN 12/21/2015 Office visit Kleber Baker PA-C 09/13/2010 Office visit Camilla RANGEL 05/22/2010 Office visit Camilla RANGEL 07/20/2009 Office visit Joseluis Moore MD 06/15/2009 Surgery Joseluis Moore MD 06/04/2009 Voided Joseluis Moore MD 05/30/2009 Laboratory Padmini uNr MD 05/29/2009 Office visit Joseluis Moore MD 05/25/2009 Office visit Joseluis Moore MD 05/24/2009 Office visit Camilla RANGEL 05/15/2009 Office visit Ashleigh Murillo MD
--- OUTSIDE RECORDS SUMMARY | 2019-04-02 19:42 | XMS REPORT ---
Author Author Jocelyne Camarillo Organization [facility] Address [address] [place], [place] [address] Care Team Providers Care Insurance Claims Assistant Name Role Phone Jocelyne Camarillo PCP Jocelyne Camarillo PreferredProvider Allergies and Adverse Reactions Name Reaction Notes Tylenol Plan of Treatment Planned Activity Comments Planned Date Planned Time Plan/Goal CBC With Auto Differential 09/09/2016 12:00 AM CMP (comprehensive metabolic panel) 09/09/2016 12:00 AM .Lipid Panel 09/09/2016 12:00 AM TSH 09/09/2016 12:00 AM CBC With Auto Differential 07/28/2017 12:00 AM CMP (comprehensive metabolic panel) 07/28/2017 12:00 AM .Lipid Panel 07/28/2017 12:00 AM Hemoglobin A1C 07/28/2017 12:00 AM Troponin I blood 07/28/2017 12:00 AM EKG. 07/28/2017 12:00 AM TSH 07/28/2017 12:00 AM Medications Active Name Start Date Estimated Completion Date SIG Comments Lexapro 10 mg oral tablet 03/16/2017 09/12/2017 [...] HC BMI BSA BMI Percentile O2 Sat(%) 07/28/2017 10:13:00 AM 123 mmHg 72 mmHg [...] No Tobacco Use Living with significant other Ballaster History of Procedures Not available. Results Summary [...] of early CAD Jul 28 2017 10:14AM Payers Insurance Name Company Name Plan Name Plan Number Policy Number Policy Group Number Start Date [facility] [place] [id number] N/A [facility] [place] [id number] Friday, 2009 History of Encounters Visit Date Visit Type Provider 07/28/2017 Office visit Jocelyne Camarillo RN UNIT MANAGER 07/12/2017 Office visit Edvin Leos NP 04/30/2017 Office visit Jocelyne Camarillo RN UNIT MANAGER 09/09/2016 Office visit Jocelyne Camarillo RN UNIT MANAGER 03/26/2016 Office visit Jocelyne Camarillo RN UNIT MANAGER 12/24/2015 Office visit Jocelyne Camarillo RN UNIT MANAGER 12/21/2015 Office visit Kleber Baker PA-C 09/13/2010 [...]
--- OUTSIDE RECORDS SUMMARY | 2019-04-02 19:42 | XMS REPORT ---
Author Author Edvin Leos [facility] Address [address] [place], [place] [id number] Care Team Providers Care Bone Drier Operator Name Role Phone Edvin Leos PCP Unavailable Jocelyne Camarillo PreferredProvider Unavailable Allergies [...] by oral route daily for 90 days Medrol (Nick) 4 mg oral tablets,dose pack 07/12/2017 take as directed permethrin 5 % topical cream 07/12/2017 apply (thoroughly massage into skin from head to soles of feet) by topical route once leave on for 8-14 hr, then remove by thorough washing Name Start Date Expiration Date SIG Comments [...] 3 times per day for 5 days Problem List Description Status Onset Anxiety Active 09/09/2016 Major depressive disorder with single episode, in full remission Active 09/09/2016 Vital Signs Date Time BP-Sys(mm[Hg] BP-Juliette(mm[Hg]) HR(bpm) RR(rpm) Temp WT HT HC BMI BSA BMI Percentile O2 Sat(%) 07/12/2017 1:24:00 PM 101 bpm 97.1 F 156.375 lbs 96 % 04/30/2017 11:37:00 AM 136 mmHg 84 mmHg 97 bpm 18 rpm 97.5 F 156 lbs 61 in 29.48 kg/m2 1.7451 m 97 % 09/09/2016 8:34:00 AM 126 mmHg 70 mmHg 84 bpm 18 rpm 97.4 F 161.375 lbs 61 in 30.4912 kg/m 1.77 m2 96 % 03/26/2016 10:54:00 AM 130 mmHg 72 mmHg 99 bpm 18 rpm 98.9 F 161.125 lbs 61 in 30.44 kg/m2 1.7736 m 97 % 12/24/2015 9:53:00 AM 130 mmHg 90 mmHg 90 bpm 16 rpm 97.3 F 157 lbs 61 in 29.6646 kg/m 1.75 m2 99 % 12/21/2015 5:03:00 PM 162 mmHg 90 mmHg 105 bpm 20 rpm 98.4 F 156 lbs 61 in 29.48 kg/m2 1.7451 m 98 % 09/13/2010 1:28:00 PM 132 mmHg 72 mmHg 68 bpm 16 rpm 97.7 F 161.5 lbs 61 in 30.5148 kg/m 1.7756 m 05/22/2010 1:35:00 PM 128 mmHg 84 mmHg 64 bpm 16 rpm 98.2 F 168.125 lbs Social History Name Description Comments Tobacco Never smoker No Tobacco Use Living with significant other 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 Results Summary [...] 2017 11:38AM Dermatitis Jul 12 2017 1:26PM Payers Insurance Name Company Name Plan Name Plan Number Policy Number Policy Group Number Start Date [facility] [place] [id number] N/A [employer] [facility] [place] [id number] Friday, 2009 History of Encounters Visit Date Visit Type Provider 07/12/2017 Office visit Edvin Leos NP 04/30/2017 Office visit Jocelyne Camarillo TEASEL GIG OPERATOR 09/09/2016 Office visit Jocelyne Camarillo APRN 03/26/2016 Office visit Jocelyne Camarillo APRN 12/24/2015 Office visit Jocelyne Camarillo APRN 12/21/2015 Office visit Kleber Baker PA-C 09/13/2010 Office visit Camilla RANGEL 05/22/2010 Office visit Camilla RANGEL 07/20/2009 Office visit Joseluis Moore MD 06/15/2009 Surgery Joseluis Moore MD 06/04/2009 Voided Joseluis Moore MD 05/30/2009 Laboratory aPdmini Nur MD 05/29/2009 Office visit Joseluis Moore MD 05/25/2009 Office visit Joseluis Moore MD 05/24/2009 Office visit Camilla RANGEL 05/15/2009 Office visit Ashleigh Murillo MD
--- OUTSIDE RECORDS SUMMARY | 2019-04-02 19:43 | XMS REPORT ---
Author Author Jocelyne Camarillo Organization [facility] Address [address] [place], [place] [address] Care Team Providers Care Drier Helper Name Role Phone Jocelyne Camarillo PCP Jocelyne [...] No Tobacco Use Living with significant other Installation & Maintenance Executive History of Procedures Not available. Results Summary [...] in full remission Jul 28 2017 10:14AM Payers Insurance Name Company Name Plan Name Plan Number Policy Number Policy Group Number Start Date [facility] [facility] [place] [id number] N/A [employer] [facility] [place] [id number] Friday, 2009 History of Encounters Visit Date Visit Type Provider 07/28/2017 Office visit Jocelyne Camarillo INSURANCE RISK ANALYST 07/12/2017 Office visit Edvin Leos NP 04/30/2017 Office visit Jocelyne Camarillo INSURANCE RISK ANALYST 09/09/2016 Office visit Jocelyne Camarillo INSURANCE RISK ANALYST 03/26/2016 Office visit Jocelyne Camarillo INSURANCE RISK ANALYST 12/24/2015 Office visit Jocelyne Camarillo INSURANCE RISK ANALYST 12/21/2015 Office visit Kleber Baker PA-C 09/13/2010 [...]
--- OUTSIDE RECORDS SUMMARY | 2019-04-02 19:43 | XMS REPORT | Continuity of Care Document ---
Author Organization Unknown Address Unknown Phone Unavailable Allergies There is no data. Medications There is no data. Problems There is no data. Procedures There is no data. Results There is no data. Encounters ACCT No. Visit Date/Time Discharge Status Pt. Type Provider Facility Loc./Unit Complaint [id number] 03/08/2019 15:09:27 03/08/2019 23:59:59 CLS Outpatient Walker, Jocelyne [id number] 09/10/2018 15:17:27 09/10/2018 23:59:59 CLS Outpatient Carson Suzanne [id number] 08/26/2018 12:18:22 08/26/2018 23:59:59 CLS Outpatient Walker, Jocelyne [id number] 09/02/2017 11:51:34 09/02/2017 23:59:59 CLS Outpatient Walker, Jocelyne [id number] 08/19/2017 14:07:39 08/19/2017 23:59:59 CLS Outpatient Priscilla Orosco [id number] 07/30/2017 10:46:18 07/30/2017 23:59:59 CLS Outpatient Walker, Jocelyne [id number] 07/28/2017 11:04:28 07/28/2017 23:59:59 CLS Outpatient Walker, Jocelyne [id number] 07/12/2017 14:03:01 07/12/2017 23:59:59 CLS Outpatient Edvin Leos [id number] 04/30/2017 12:34:35 04/30/2017 23:59:59 CLS Outpatient Walker, Jocelyne [id number] 09/09/2016 09:31:49 09/09/2016 23:59:59 CLS Outpatient Walker, Jocelyne [id number] 03/26/2016 11:50:03 03/26/2016 23:59:59 CLS Outpatient Walker, Jocelyne
== END 2019-04-02 13:08 | disposition home or self-care (01) ==
LOC: ER 12:03
DX: S60.222A Contusion of left hand, initial encounter (principal); V89.2XXA Person injured in unspecified motor-vehicle accident, traffic, initial encounter
CPT/HCPCS: 73130

== ENCOUNTER 2021-02-07 09:37 | Day surgery (SDC) | payer BC ==
[~2021-02-07] VITALS: Ht 165 cm; Wt 68.0 kg
[2021-02-07] VITALS (10 sets, daily range): BP systolic 84–114; BP diastolic 52–88
--- NOTE | 2021-02-07 09:54 | ED Abdominal Pain ---
General Stated Complaint: SEIZURE,ABD PAIN Source of Information: Patient Exam Limitations: No Limitations History of Present Illness Date Seen by Provider: Feb 07, 2021 Time Seen by Provider: 09:42 Initial Comments Patient presents ER by EMS where she said she was in her car alone when she had a seizure. She says she then called some friends who came over and said maybe she was a little postictal. EMS states she was alert and oriented and answering questions but complaining of abdominal pain and distention has been going on for the past 3 days and that is what she wanted brought to the ER to be checked out for. She has a history of epilepsy. She has not taken medicines nor had a seizure in many years for epilepsy. Patient has a history of hysterectomy and cholecystectomy in the past. She does not feel distended and had a normal bowel movement yesterday. She does not take anything for pain. She says for 3 days has been having pain and distention in her right lower quadrant abdomen without dysuria, discharge, nausea or fever. She rates her pain as a 15 out of 10. Last oral intake was about 7:00 this morning she had a few sips of water. Allergies and Home Medications Allergies Coded Allergies: No Known Drug Allergies (Unverified , 02/07/21) Patient Home Medication List Home Medication List Reviewed: Yes Review of Systems Review of Systems Constitutional: No chills, No diaphoresis EENTM: No Blurred Vision, No Double Vision Respiratory: Denies Cough, Denies Shortness of Air Cardiovascular: Denies Chest Pain, Denies Lightheadedness Gastrointestinal: See HPI; Denies Abdomen Distended; Abdominal Pain; Denies Constipated, Denies Diarrhea, Denies Nausea Genitourinary: Denies Burning, Denies Discharge Musculoskeletal: No back pain, No joint pain Skin: No pruritus, No rash Psychiatric/Neurological: Denies Headache, Denies Numbness All Other Systems Reviewed Negative Unless Noted: Yes Past Sgqopnp-Fgktne-Kiaaku Hx Patient Social History Alcohol Use: Denies Use Smoking Status: Never a Smoker Physical Exam Vital Signs Vital Signs - First Documented 02/07/21 09:39 Temp 36.9 Pulse 75 Resp 18 B/P (MAP) 118/71 (87) Pulse Ox 99 O2 Delivery Room Air Capillary Refill : Height/Weight/BMI Height: 5'1.00" Weight: 145lbs. oz. 65.454174cn; BMI Method:Stated General Appearance: WD/WN, moderate distress HEENT: PERRL/EOMI, pharynx normal Neck: full range of motion, normal inspection Respiratory: lungs clear, normal breath sounds, no respiratory distress, no accessory muscle use Cardiovascular: normal peripheral pulses, regular rate, rhythm Peripheral Pulses: 2+ Radial Pulses (R), 2+ Radial Pulses (L) Gastrointestinal: soft, abnormal bowel sounds (Class), tenderness (Right lower quadrant exquisitely tender to palpation.), other (Negative for psoas sign, Rovsing sign. Modest distention) Extremities: normal inspection, normal capillary refill Neurologic/Psychiatric: alert, oriented x 3, other (Anxious) Skin: normal color, warm/dry Progress/Results/Core Measures Results/Orders Lab Results Laboratory Tests Test 02/07/21 09:47 02/07/21 10:16 Range/Units White Blood Count 11.9 H 4.3-11.0 10^3/uL Red Blood Count 4.97 3.80-5.11 10^6/uL Hemoglobin 14.4 11.5-16.0 g/dL Hematocrit 43 35-52 % Mean Corpuscular Volume 87 80-99 fL Mean Corpuscular Hemoglobin 29 25-34 pg Mean Corpuscular Hemoglobin Concent 34 32-36 g/dL Red Cell Distribution Width 12.9 10.0-14.5 % Platelet Count 298 130-400 10^3/uL Mean Platelet Volume 10.6 9.0-12.2 fL Immature Granulocyte % (Auto) 0 % Neutrophils (%) (Auto) 77 H 42-75 % Lymphocytes (%) (Auto) 14 12-44 % Monocytes (%) (Auto) 7 0-12 % Eosinophils (%) (Auto) 1 0-10 % Basophils (%) (Auto) 1 0-10 % Neutrophils # (Auto) 9.2 H 1.8-7.8 10^3/uL Lymphocytes # (Auto) 1.6 1.0-4.0 10^3/uL Monocytes # (Auto) 0.8 0.0-1.0 10^3/uL Eosinophils # (Auto) 0.2 0.0-0.3 10^3/uL Basophils # (Auto) 0.1 0.0-0.1 10^3/uL Immature Granulocyte # (Auto) 0.0 0.0-0.1 10^3/uL Sodium Level 139 135-145 MMOL/L Potassium Level 4.1 3.6-5.0 MMOL/L Chloride Level 104 98-107 MMOL/L Carbon Dioxide Level 23 21-32 MMOL/L Anion Gap 12 5-14 MMOL/L Blood Urea Nitrogen 10 7-18 MG/DL Creatinine 0.67 0.60-1.30 MG/DL Estimat Glomerular Filtration Rate > 60 BUN/Creatinine Ratio 15 Glucose Level 195 H 70-105 MG/DL Calcium Level 9.1 8.5-10.1 MG/DL Corrected Calcium 9.0 8.5-10.1 MG/DL Total Bilirubin 1.1 H 0.1-1.0 MG/DL Aspartate Amino Transf (AST/SGOT) 21 5-34 U/L Alanine Aminotransferase (ALT/SGPT) 22 0-55 U/L Alkaline Phosphatase 58 40-136 U/L C-Reactive Protein High Sensitivity 6.90 H 0.00-0.50 MG/DL Total Protein 7.3 6.4-8.2 GM/DL Albumin 4.1 3.2-4.5 GM/DL Urine Color YELLOW Urine Clarity CLOUDY Urine pH 6.0 5-9 Urine Specific [place] 1.025 H 1.016-1.022 Urine Protein 1+ H NEGATIVE Urine Glucose (UA) 3+ H NEGATIVE Urine Ketones 1+ H NEGATIVE Urine Nitrite NEGATIVE NEGATIVE Urine Bilirubin NEGATIVE NEGATIVE Urine Urobilinogen 0.2 < = 1.0 MG/DL Urine Leukocyte Esterase TRACE H NEGATIVE Urine RBC (Auto) TRACE-I NEGATIVE Urine RBC 5-10 H /HPF Urine WBC 50-100 H /HPF Urine Squamous Epithelial Cells 25-50 H /HPF Urine Crystals NONE /LPF Urine Bacteria MODERATE H /HPF Urine Casts NONE /LPF Urine Mucus NEGATIVE /LPF Urine Yeast FEW H /HPF Urine Culture Indicated YES My Orders Orders - TERRY PYLE Fentanyl Inj (Sublimaze Injection) (02/07/21 10:00) Ct Abd/Pelv W (Appendicitis) (02/07/21 09:47) Cbc With Automated Diff (02/07/21 09:47) Comprehensive Metabolic Panel (02/07/21 09:47) Hs C Reactive Protein (02/07/21 09:47) Ua Culture If Indicated (02/07/21 09:47) Ed Iv/Invasive Line Start (02/07/21 09:47) Iohexol Injection (Omnipaque 350 Mg/Ml 1 (02/07/21 10:00) Received Contrast (Hold Metformin- Contr (02/07/21 10:00) Sodium Chloride Flush (Catheter Flush Sy (02/07/21 10:00) Ns (Ivpb) (Sodium Chloride 0.9% Ivpb Bag (02/07/21 10:00) Urine Culture (02/07/21 10:16) Morphine Injection (Morphine Injection (02/07/21 11:07) Ondansetron Injection (Zofran Injectio (02/07/21 11:30) Lorazepam Injection (Ativan Injection) (02/07/21 11:30) Medications Given in ED Current Medications Medications Dose Ordered Sig/[place] Route Start Time Stop Time Status Last Admin Dose Admin Fentanyl Citrate 50 mcg ONCE ONCE IVP 02/07/21 10:00 02/07/21 10:01 DC 02/07/21 09:55 50 MCG Iohexol 100 ml ONCE ONCE IV 02/07/21 10:00 02/07/21 10:01 DC 02/07/21 10:50 88 ML Lorazepam 1 mg ONCE ONCE IVP 02/07/21 11:30 02/07/21 11:31 DC 02/07/21 11:30 1 MG Ondansetron HCl 4 mg ONCE ONCE IVP 02/07/21 11:30 02/07/21 11:31 DC 02/07/21 11:29 4 MG Sodium Chloride 100 ml ONCE ONCE IV 02/07/21 10:00 02/07/21 10:01 DC 02/07/21 10:50 80 ML Vital Signs/I&O 02/07/21 09:39 Temp 36.9 Pulse 75 Resp 18 B/P (MAP) 118/71 (87) Pulse Ox 99 O2 Delivery Room Air Progress Progress Note #1: Time: 09:53 Progress Note Fentanyl, continue the liter of fluids initiated by EMS and get some labs including a CRP urinalysis negative CT of the abdomen pelvis. Appendicitis, colitis/diverticulitis, gynecologic ovarian origin versus other. Aseptic vital signs. Progress Note #2: Time: 11:47 Progress Note The fentanyl did not help much so we gave her some morphine 4 mg. Shortly after the morphine was initiated she had a 15-second gran mal seizure. She had a very brief period of postictal phase a few seconds afterwards and then was able to answer questions. We discussed her findings on the CT of appendicitis and she would like to undergo surgery. We discussed her ovarian cysts and how they would need to be worked up in the next month or [address] Garcia and she and her who was present both agreed to follow-up on this. 1 mg Ativan was then ordered since this is the second reported seizure today. Diagnostic Imaging Diagonstic Imaging: CT Plain Films/CT/US/NM/MRI: abdomen, pelvis Comments NAME: SARAH JOHNSON [facility] REC#: [id number] PT STATUS: REG ER : 1980 PHYSICIAN: TERRY PYLE MD ADMIT DATE: 02/07/21/ER Draft Date of Exam:02/07/21 CT ABD/PELV W (APPENDICITIS) PROCEDURE: CT abdomen and pelvis with contrast, rule out appendicitis. TECHNIQUE: Multiple contiguous axial images were obtained through the abdomen and pelvis after the administration of intravenous contrast. All CT scans use one or more of the following dose optimizing techniques: automated exposure control, MA and/or KvP adjustment based on patient size and exam type or iterative reconstruction. INDICATION: Abdominal pain. There are no prior studies available for comparison. FINDINGS: The appendix does appear to be thickened measuring 14 mm (normal 8 mm or less). Furthermore, there is an appendicolith in the base of the appendix and there is considerable distortion of the periappendiceal fat. There is a small amount of fluid about the tip of the enlarged appendix as well. These findings do suggest that there is acute appendicitis. There are also a few fluid-filled segments of small bowel present. These are nonspecific but could be related to a mild ileus perhaps secondary to the suspected appendicitis or to enteritis. The liver is enlarged measuring 26 cm in length. The liver is of lower density than usually seen and this does suggest fatty metamorphosis. There is no focal mass involving the liver. The spleen is prominent but within normal limits. The pancreas, adrenals, kidneys, aorta and inferior vena cava and portal vein are unremarkable for an acute abnormality. By history, the gallbladder is surgically absent. The stomach is distended by fluid and difficult to assess. There may be a small hiatal hernia. Reportedly, the uterus is also surgically absent. However, there are oval areas of diminished density in each adnexa. Specifically, there is a 4.0 x 4.9 cm oval area of diminished density in the left adnexa. There is also a somewhat denser oval lesion in the right adnexa measuring 3.3 x 4.0 cm. The low density lesion of the left is probably a cyst. The low density lesion on the right could be related to a complex cyst or less likely a solid mass. If further evaluation is desired, then ultrasound would be recommended. The lung bases are clear. The bone windows show no sign of a fracture or for destructive lesion. IMPRESSION: 1. The findings would be consistent with acute appendicitis. Surgical consult would be recommended. 2. The fluid-filled segments of small bowel are nonspecific but may be related to an ileus perhaps secondary to the suspected appendicitis or to enteritis. 3. There is hepatomegaly and low density appearance liver does suggest fatty metamorphosis. 4. There appears to be a sizable cyst associated with the left, there may be a complex cyst or solid mass associated with the right ovary. Ultrasound would be recommended for further evaluation when the patient's condition permits. 5. These results will be discussed with Dr. Terry Pyle in the Emergency Room. Dictated on workstation # [id number] Dict: 02/07/21 1110 Trans: 02/07/21 1132 [id number] Interpreted by: RONN BUSCH MD Electronically signed by: Reviewed: Reviewed by Me Departure Communication (Admissions) Time/Spoke to Admitting Phy: 11:25 Discussed the case with Dr. Beasley and he plans to see the patient and likely take her to surgery. He recommends if her appendix has not burst not to start antibiotics at this time. Impression Primary Impression: Appendicitis Qualified Codes: K35.30 - Acute appendicitis with localized peritonitis, without perforation or gangrene Additional Impressions: Epilepsy Qualified Codes: G40.909 - Epilepsy, unspecified, not intractable, without status epilepticus Seizure Ovarian cyst Qualified Codes: N83.201 - Unspecified ovarian cyst, right side; N83.202 - Unspecified ovarian cyst, left side Disposition: 09 ADMITTED INPATIENT Condition: Stable Admissions Decision to Admit Reason: Admit from ER (General) Decision to Admit/Date: Feb 07, 2021 Time/Decision to Admit Time: 11:25 Departure-Patient Inst. Referrals: PAMELA GARCIA (PCP/Family) Primary Care Physician TERRY PYLE Feb 07, 2021 09:54
[2021-02-07 09:55] LABS: BASOPHILS # (AUTO) 0.1 10^3/uL (0.0-0.1); BASOPHILS % (AUTO) 1 % (0-10); EOSINOPHILS # (AUTO) 0.2 10^3/uL (0.0-0.3); EOSINOPHILS % (AUTO) 1 % (0-10); HEMATOCRIT 43 % (35-52); HEMOGLOBIN 14.4 g/dL (11.5-16.0); LYMPHOCYTES # (AUTO) 1.6 10^3/uL (1.0-4.0); LYMPHOCYTES % (AUTO) 14 % (12-44); MEAN CORPUSCULAR HEMOGLOBIN 29 pg (25-34); MEAN CORPUSCULAR HGB CONC 34 g/dL (32-36); MEAN CORPUSCULAR VOLUME 87 fL (80-99); MEAN PLATELET VOLUME 10.6 fL (9.0-12.2); MONOCYTES # (AUTO) 0.8 10^3/uL (0.0-1.0); MONOCYTES % (AUTO) 7 % (0-12); NEUTROPHILS # (AUTO) 9.2 10^3/uL (1.8-7.8); NEUTROPHILS % (AUTO) 77 % (42-75); PLATELET COUNT 298 10^3/uL (130-400); WHITE BLOOD COUNT 11.9 10^3/uL (4.3-11.0)
[2021-02-07] MEDS ORDERED: IOHEXOL 350 MG/ML 100 ML (OMNIPAQUE 350) VIAL IV ONE (10:00)
[2021-02-07] MEDS ORDERED: fentaNYL INJ 100 MCG/2 ML AMP IVP ONE ×2 (10:00→14:45)
[2021-02-07] MEDS ORDERED: CATHETER FLUSH 10 ML SYR IV PRN (10:00)
[2021-02-07] MEDS ORDERED: NS 100 ML (IVPB) BAG IV ONE (10:00)
[2021-02-07] MEDS ORDERED: HOLD METFORMIN - RECEIVED CONTRAST 20 ML VIAL IV SCH (10:00)
[2021-02-07 10:09] LABS: ALBUMIN 4.1 GM/DL (3.2-4.5); CHLORIDE 104 MMOL/L (98-107); POTASSIUM 4.1 MMOL/L (3.6-5.0); SODIUM 139 MMOL/L (135-145)
[2021-02-07 10:10] LABS: CALCIUM 9.1 MG/DL (8.5-10.1)
[2021-02-07 10:12] LABS: GLUCOSE 195 MG/DL (70-105); TOTAL PROTEIN 7.3 GM/DL (6.4-8.2)
[2021-02-07 10:13] LABS: BILIRUBIN,TOTAL 1.1 MG/DL (0.1-1.0); CARBON DIOXIDE 23 MMOL/L (21-32)
[2021-02-07 10:15] LABS: ALKALINE PHOSPHATASE 58 U/L (40-136); CREATININE SERUM 0.67 MG/DL (0.60-1.30); GFR ESTIMATED > 60
[2021-02-07 10:16] LABS: BUN/CREATININE RATIO 15
[2021-02-07 10:18] LABS: ALANINE AMINOTRANSFERASE 22 U/L (0-55)
[2021-02-07 10:20] LABS: BILIRUBIN,URINE NEGATIVE (NEGATIVE); CLARITY,URINE CLOUDY; COLOR,URINE YELLOW; GLUCOSE, URINE (UA) 3+ (NEGATIVE); KETONES,URINE 1+ (NEGATIVE); LEUKOCYTE ESTERASE ,URINE TRACE (NEGATIVE); NITRITE,URINE NEGATIVE (NEGATIVE); PROTEIN,URINE 1+ (NEGATIVE)
[2021-02-07 10:34] LABS: BACTERIA,URINE MODERATE /HPF; SQUAMOUS EPITHELIAL CELL,UR 25-50 /HPF
[2021-02-07 10:35] LABS: YEAST,URINE FEW /HPF
[2021-02-07 10:43] LABS: WBC,URINE 50-100 /HPF
[2021-02-07] MEDS ORDERED: morphine INJ 10 MG/ML 1ML (SYR OR VIAL) IVP STA (11:07)
[2021-02-07] MEDS ORDERED: LORazepam INJ 2 MG/ML (ATIVAN) VIAL IVP ONE (11:30)
[2021-02-07] MEDS ORDERED: ONDANSETRON 4 MG/2 ML (SDV) Z0FRAN IVP ONE (11:30)
--- NOTE | 2021-02-07 11:32 | Diagnostic Imaging Report ---
PROCEDURE: CT abdomen and pelvis with contrast, rule out appendicitis. TECHNIQUE: Multiple contiguous axial images were obtained through the abdomen and pelvis after the administration of intravenous contrast. All CT scans use one or more of the following dose optimizing techniques: automated exposure control, MA and/or KvP adjustment based on patient size and exam type or iterative reconstruction. INDICATION: Abdominal pain. There are no prior studies available for comparison. FINDINGS: The appendix does appear to be thickened measuring 14 mm (normal 8 mm or less). Furthermore, there is an appendicolith in the base of the appendix and there is considerable distortion of the periappendiceal fat. There is a small amount of fluid about the tip of the enlarged appendix as well. These findings do suggest that there is acute appendicitis. There are also a few fluid-filled segments of small bowel present. These are nonspecific but could be related to a mild ileus perhaps secondary to the suspected appendicitis or to enteritis. The liver is enlarged measuring 26 cm in length. The liver is of lower density than usually seen and this does suggest fatty metamorphosis. There is no focal mass involving the liver. The spleen is prominent but within normal limits. The pancreas, adrenals, kidneys, aorta and inferior vena cava and portal vein are unremarkable for an acute abnormality. By history, the gallbladder is surgically absent. The stomach is distended by fluid and difficult to assess. There may be a small hiatal hernia. Reportedly, the uterus is also surgically absent. However, there are oval areas of diminished density in each adnexa. Specifically, there is a 4.0 x 4.9 cm oval area of diminished density in the left adnexa. There is also a somewhat denser oval lesion in the right adnexa measuring 3.3 x 4.0 cm. The low density lesion of the left is probably a cyst. The low density lesion on the right could be related to a complex cyst or less likely a solid mass. If further evaluation is desired, then ultrasound would be recommended. The lung bases are clear. The bone windows show no sign of a fracture or for destructive lesion. IMPRESSION: 1. The findings would be consistent with acute appendicitis. A surgical consult would be recommended. 2. The fluid-filled segments of small bowel are nonspecific but may be related to an ileus perhaps secondary to the suspected appendicitis or to enteritis. 3. There is hepatomegaly and low density appearance liver does suggest fatty metamorphosis. 4. There appears to be a sizable cyst associated with the left, there may be a complex cyst or solid mass associated with the right ovary. Ultrasound would be recommended for further evaluation when the patient's condition permits. 5. These results will be discussed with Dr. Terry Pyle in the Emergency Room. Dictated by: Dictated on workstation # [id number]
[2021-02-07] MEDS ORDERED: morphine INJ 4 MG/ML 1 ML (VIAL/SYRINGE) IV PRN (12:15)
[2021-02-07] MEDS ORDERED: LORazepam INJ 2 MG/ML (ATIVAN) VIAL IV PRN (12:15)
[2021-02-07] MEDS ORDERED: ONDANSETRON 4 MG/2 ML (SDV) Z0FRAN IV PRN (12:15)
[2021-02-07] MEDS ORDERED: MIDAZOLAM 2 MG/2 ML (VERSED) VIAL ONE (12:16)
[2021-02-07] MEDS ORDERED: fentaNYL INJ 100 MCG/2 ML AMP ONE (12:16)
[2021-02-07] MEDS ORDERED: cefTRIAXone 1,000 MG in WATER (STERILE) FOR INJECTION 10 ML IV NR (13:00)
--- NOTE | 2021-02-07 13:02 | History & Physical-Surgical ---
History of Present Illness History of Present Illness Reason for visit/HPI Surgery asked to admit pt re; appendicitis. HPI per ED: Patient presents ER by EMS where she said she was in her car alone when she had a seizure. She says she then called some friends who came over and said maybe she was a little postictal. EMS states she was alert and oriented and answering questions but complaining of abdominal pain and distention has been going on for the past 3 days and that is what she wanted brought to the ER to be checked out for. She has a history of epilepsy. She has not taken medici cesar nor had a seizure in many years for epilepsy. Patient has a history of hysterectomy and cholecystectomy in the past. She does not feel distended and had a normal bowel movement yesterday. She does not take anything for pain. She says for 3 days has been having pain and distention in her right lower quadrant abdomen without dysuria, discharge, nausea or fever. She rates her pain as a 15 out of 10. Last oral intake was about 7:00 this morning she had a few sips of water. When I saw pt this afternoon she was still in pain; stated it started "all over" 3 days ago, but since has gone down to RLQ. Date of Admission Feb 07, 2021 at 11:30 Time Seen by a Provider: 12:41 I consulted on this patient on 02/07/21 12:57 Attending Physician Rony Perla DO Admitting Physician Jocelyne Camarillo Consult Allergies and Home Medications Allergies Coded Allergies: No Known Drug Allergies (Unverified , 02/07/21) Patient Home Medication List Home Medication List Reviewed: Yes Past Eiewkie-Zjywzr-Vlkkvm Hx Patient Social History Smoking Status: Never a Smoker Alcohol Use?: No Have you traveled recently?: No Surgeries History of Surgeries: Yes Surgeries: Gallbladder, Hysterectomy Respiratory History of Respiratory Disorde: No Cardiovascular History of Cardiac Disorders: Yes (HEART ?) Neurological History of Neurological Disord: Yes (SEIZURES) Reproductive System : No Genitourinary History of Genitourinary Disor: No Gastrointestinal History of Gastrointestinal Di: Yes Gastrointestinal Disorders: Gall Bladder Disease Musculoskeletal History of Musculoskeletal Dis: No Endocrine History of Endocrine Disorders: Yes Endocrine Disorders: Diabetes, Non-Insulin dep HEENT History of HEENT Disorders: No Loss of Vision: Denies Hearing Impairment: Denies Cancer History of Cancer: No Psychosocial History of Psychiatric Problem: No Family Medical History Significant Family History: Cancer (Father of throat cancer), Diabetes (Mother and Grandmother), Seizures (Mother) Review of Systems Constitutional: chills, fever, malaise EENTM: No blurred vision, No double vision, No mouth pain, No mouth swelling, No epistaxis Respiratory: No cough, No dyspnea on exertion, No hemoptysis, No short of breath Cardiovascular: No chest pain, No palpitations Gastrointestinal: abdominal pain (RLQ); No diarrhea, No hematemesis; loss of appetite, nausea; No vomiting Genitourinary: No dysuria, No frequency, No hematuria Musculoskeletal: No joint pain, No joint swelling, No muscle pain Skin: No change in color, No change in hair/nails Psychiatric/Neurological: Denies Anxiety, Denies Depressed; Seizure; Denies Tingling Pt denies hx of abnormal bleeding or bruising Physical Exam Vital Signs Vital Signs - First Documented 02/07/21 02/07/21 09:39 11:50 Temp 36.9 Pulse 75 Resp 18 B/P (MAP) 118/71 (87) Pulse Ox 99 O2 Delivery Room Air O2 Flow Rate 2.00 Capillary Refill : Less Than 3 Seconds Height, Weight, BMI Height: 5'1.00" Weight: 145lbs. oz. 65.139145hl; 24.97 BMI Method:Stated General Appearance: No Apparent Distress, Obese, Other (Post-ictal) Eyes: Bilateral Eye PERRL, Bilateral Eye EOMI HEENT: Pharynx Normal, Moist Mucous Membranes Neck: Non Tender, Supple Respiratory: Chest Non Tender, Lungs Clear, Normal Breath Sounds, No Accessory Muscle Use, No Respiratory Distress Cardiovascular: Regular Rate, Rhythm, No Murmur Gastrointestinal: Soft; No Distended; Tenderness Back: No CVA Tenderness, No Vertebral Tenderness Extremity: Non Tender, No Calf Tenderness, No Pedal Edema Neurologic/Psychiatric: Alert, Oriented x3, No Motor/Sensory Deficits, Normal Mood/Affect, dress draper II-XII Norm as Tested Skin: Normal Color, Warm/Dry Lymphatic: No Adenopathy (neck, axilla or groin) Data Review Labs Laboratory Tests 02/07/21 09:47: White Blood Count 11.9H, Red Blood Count 4.97, Hemoglobin 14.4, Hematocrit 43, Mean Corpuscular Volume 87, Mean Corpuscular Hemoglobin 29, Mean Corpuscular Hemoglobin Concent 34, Red Cell Distribution Width 12.9, Platelet Count 298, Mean Platelet Volume 10.6, Immature Granulocyte % (Auto) 0, Neutrophils (%) (Auto) 77H, Lymphocytes (%) (Auto) 14, Monocytes (%) (Auto) 7, Eosinophils (%) (Auto) 1, Basophils (%) (Auto) 1, Neutrophils # (Auto) 9.2H, Lymphocytes # (Auto) 1.6, Monocytes # (Auto) 0.8, Eosinophils # (Auto) 0.2, Basophils # (Auto) 0.1, Immature Granulocyte # (Auto) 0.0, Sodium Level 139, Potassium Level 4.1, Chloride Level 104, Carbon Dioxide Level 23, Anion Gap 12, Blood Urea Nitrogen 10, Creatinine 0.67, Estimat Glomerular Filtration Rate > 60, BUN/Creatinine Ratio 15, Glucose Level 195H, Calcium Level 9.1, Corrected Calcium 9.0, Total Bilirubin 1.1H, Aspartate Amino Transf (AST/SGOT) 21, Alanine Aminotransferase (ALT/SGPT) 22, Alkaline Phosphatase 58, C-Reactive Protein High Sensitivity 6.90H, Total Protein 7.3, Albumin 4.1 02/07/21 10:16: Urine Color YELLOW, Urine Clarity CLOUDY, Urine pH 6.0, Urine Specific [place] 1.025H, Urine Protein 1+H, Urine Glucose (UA) 3+H, Urine Ketones 1+H, Urine Nitrite NEGATIVE, Urine Bilirubin NEGATIVE, Urine Urobilinogen 0.2, Urine Leukocyte Esterase TRACEH, Urine RBC (Auto) TRACE-I, Urine RBC 5-10H, Urine WBC 50-100H, Urine Squamous Epithelial Cells 25-50H, Urine Crystals NONE, Urine Bacteria MODERATEH, Urine Casts NONE, Urine Mucus NEGATIVE, Urine Yeast FEWH, Urine Culture Indicated YES Radiology Date of Exam:02/07/21 CT ABD/PELV W (APPENDICITIS) PROCEDURE: CT abdomen and pelvis with contrast, rule out appendicitis. TECHNIQUE: Multiple contiguous axial images were obtained through the abdomen and pelvis after the administration of intravenous contrast. All CT scans use one or more of the following dose optimizing techniques: automated exposure control, MA and/or KvP adjustment based on patient size and exam type or iterative reconstruction. INDICATION: Abdominal pain. There are no prior studies available for comparison. FINDINGS: The appendix does appear to be thickened measuring 14 mm (normal 8 mm or less). Furthermore, there is an appendicolith in the base of the appendix and there is considerable distortion of the periappendiceal fat. There is a small amount of fluid about the tip of the enlarged appendix as well. These findings do suggest that there is acute appendicitis. There are also a few fluid-filled segments of small bowel present. These are nonspecific but could be related to a mild ileus perhaps secondary to the suspected appendicitis or to enteritis. The liver is enlarged measuring 26 cm in length. The liver is of lower density than usually seen and this does suggest fatty metamorphosis. There is no focal mass involving the liver. The spleen is prominent but within normal limits. The pancreas, adrenals, kidneys, aorta and inferior vena cava and portal vein are unremarkable for an acute abnormality. By history, the gallbladder is surgically absent. The stomach is distended by fluid and difficult to assess. There may be a small hiatal hernia. Reportedly, the uterus is also surgically absent. However, there are oval areas of diminished density in each adnexa. Specifically, there is a 4.0 x 4.9 cm oval area of diminished density in the left adnexa. There is also a somewhat denser oval lesion in the right adnexa measuring 3.3 x 4.0 cm. The low density lesion of the left is probably a cyst. The low density lesion on the right could be related to a complex cyst or less likely a solid mass. If further evaluation is desired, then ultrasound would be recommended. The lung bases are clear. The bone windows show no sign of a fracture or for destructive lesion. IMPRESSION: 1. The findings would be consistent with acute appendicitis. Surgical consult would be recommended. 2. The fluid-filled segments of small bowel are nonspecific but may be related to an ileus perhaps secondary to the suspected appendicitis or to enteritis. 3. There is hepatomegaly and low density appearance liver does suggest fatty metamorphosis. 4. There appears to be a sizable cyst associated with the left, there may be a complex cyst or solid mass associated with the right ovary. Ultrasound would be recommended for further evaluation when the patient's condition permits. 5. These results will be discussed with Dr. Terry Pyle in the Emergency Room. Dictated on workstation # [id number] Dict: 02/07/21 1110 Trans: 02/07/21 1132 [id number] Interpreted by: RONN BUSCH MD Assessment/Plan Assessment/Plan Admission Diagonsis Acute Appendicitis Seizures DM II Obesity B/L Ovarian Cysts Admission Status: Observation Assessment/Plan Acute Appendicitis Seizures DM II Obesity B/L Ovarian Cysts Plan is to take pt to the OR for Laparoscopic Appendectomy possible open. Will get consent, IV ABX transformation coach to OR, pain meds as needed, will monitor for seizure activity. Discussed the surgery with pt and her ; risks and complications not limited to pain, bleeding, infection, scar, damage to bowel and need for further procedure. There is some fluid in the RLQ, but appendix does not look ruptured. If appendix is not ruptured pt will probably go home today. May need to see Neurology as an outpt if the seizures continue; she hasn't had any in many years and is not taking meds for them. It is most likely that the seizures are caused by the infection of appendicitis. RONY PERLA DO Feb 07, 2021 13:02
[2021-02-07] MEDS ORDERED: LIDOCAINE/EPI 1%-1:100,000 (XYLOCAINE) 20ML ONE (13:11)
[2021-02-07] MEDS ORDERED: cefTRIAXone 1,000 MG VIAL ONE (13:18)
[2021-02-07] MEDS: LACTATED RINGERS 1,000 ML IV SCH ×3 (13:45→19:27)
[2021-02-07] MEDS ORDERED: proPOfol 200 MG/20 ML (DIPRIVAN) VIAL IV ONE (14:11)
[2021-02-07] MEDS ORDERED: SEVOFLURANE (ULTANE) 15 ML INHAL SOLN ONE (14:11)
[2021-02-07] MEDS ORDERED: ONDANSETRON 4 MG/2 ML (SDV) Z0FRAN ONE (14:11)
[2021-02-07] MEDS ORDERED: ROCURONIUM 10 MG/ML 5 ML SYRINGE IV ONE (14:11)
[2021-02-07] MEDS ORDERED: SUCCINYLCHOLINE INJ 100 MG/5 ML SYR/VIAL ONE (14:11)
[2021-02-07] MEDS ORDERED: LIDOCAINE PF 2% 5 ML (XYLOCAINE) VIAL ONE (14:11)
[2021-02-07] MEDS ORDERED: KETOROLAC 30 MG/ML VIAL ONE (14:17)
[2021-02-07] MEDS ORDERED: SUGAMMADEX 500 MG/5 ML VIAL (BRIDION) IV ONE (14:20)
[2021-02-07] MEDS ORDERED: RT-ALBUTEROL SULF 2.5 MG/3 ML PRE-MIX VIAL ONE (14:29)
[2021-02-07] MEDS ORDERED: RT-ALBUTEROL SULF 2.5 MG/3 ML PRE-MIX VIAL INH ONE (14:45)
[2021-02-07] MEDS ORDERED: morphine INJ 10 MG/ML 1ML (SYR OR VIAL) IVP ONE (14:45)
[2021-02-07] MEDS ORDERED: ONDANSETRON 4 MG/2 ML (SDV) Z0FRAN IVP PRN (14:45)
[2021-02-07] MEDS ORDERED: PROMETHAZINE INJ 25 MG/ML (PHENERGAN) AMP IVP ONE (14:45)
--- NOTE | 2021-02-07 14:45 | Anesthesia-General Post-Op ---
General Patient Condition Mental Status/LOC: Same as Preop Cardiovascular: Satisfactory Nausea/Vomiting: Absent Respiratory: Satisfactory Pain: Controlled Complications: Absent Post Op Complications Complications None Follow Up Care/Instructions Patient Instructions None needed. Anesthesia/Patient Condition Patient Condition Patient is doing well, no complaints, stable vital signs, no apparent adverse anesthesia problems. No complications reported per nursing. CHAD BERG CRNA Feb 07, 2021 14:44
[2021-02-07] MEDS ORDERED: PIPERACILLIN/TAZO 4.5 GM/NS 100 ML IV NR ×2 (16:30)
[2021-02-07] MEDS: HYDROmorphone 2 MG/ML VIAL (DILAUDID) IV PRN ×2 (17:22→21:26)
[2021-02-07] MEDS: PIPERACILLIN/TAZOBACTAM (BULK) 4.5 GM in NS (IVPB) 100 ML IV SCH (23:25)
[2021-02-08] VITALS (7 sets, daily range): BP systolic 102–137; BP diastolic 58–76
[2021-02-08] MEDS: HYDROmorphone 2 MG/ML VIAL (DILAUDID) IV PRN ×4 (02:59→20:41)
[2021-02-08 05:46] LABS: BASOPHILS % (AUTO) 0 % (0-10); EOSINOPHILS % (AUTO) 0 % (0-10); HEMATOCRIT 38 % (35-52); HEMOGLOBIN 12.4 g/dL (11.5-16.0); LYMPHOCYTES # (AUTO) 0.9 10^3/uL (1.0-4.0); LYMPHOCYTES % (AUTO) 10 % (12-44); MEAN CORPUSCULAR HEMOGLOBIN 29 pg (25-34); MEAN CORPUSCULAR HGB CONC 33 g/dL (32-36); MEAN CORPUSCULAR VOLUME 88 fL (80-99); MEAN PLATELET VOLUME 10.2 fL (9.0-12.2); MONOCYTES # (AUTO) 0.6 10^3/uL (0.0-1.0); MONOCYTES % (AUTO) 6 % (0-12); NEUTROPHILS # (AUTO) 7.6 10^3/uL (1.8-7.8); NEUTROPHILS % (AUTO) 84 % (42-75); PLATELET COUNT 194 10^3/uL (130-400); WHITE BLOOD COUNT 9.1 10^3/uL (4.3-11.0)
[2021-02-08] MEDS: PIPERACILLIN/TAZOBACTAM (BULK) 4.5 GM in NS (IVPB) 100 ML IV SCH ×3 (05:54→22:05)
[2021-02-08 06:03] LABS: CHLORIDE 102 MMOL/L (98-107); POTASSIUM 3.1 MMOL/L (3.6-5.0); SODIUM 136 MMOL/L (135-145)
[2021-02-08 06:04] LABS: CALCIUM 8.2 MG/DL (8.5-10.1)
[2021-02-08 06:05] LABS: GLUCOSE 218 MG/DL (70-105)
[2021-02-08 06:06] LABS: CARBON DIOXIDE 22 MMOL/L (21-32)
[2021-02-08 06:08] LABS: CREATININE SERUM 0.67 MG/DL (0.60-1.30); GFR ESTIMATED > 60
[2021-02-08 06:09] LABS: BUN/CREATININE RATIO 10
--- NOTE | 2021-02-08 09:08 | Progress Note-Post Operative ---
Post-Operative Progess Note Surgeon (s)/Pile Driving Setter (s) Surgeon RONY PERLA DO Pile Driving Setter: none Pre-Operative Diagnosis Acute Appy Post-Operative Diagnosis Ruptured Appendicitis with fecal contamination peritonitis b/l ovarian cysts Procedure & Operative Findings Date of Procedure 02/07/21 Procedure Performed/Findings PROCEDURE: Laparoscopic appendectomy. COMPLICATIONS: None. INDICATIONS: The patient is a 41 year old female who has been having right lower quadrant abdominal pain for at least 3 days. Patient's exam consistent with appendicitis. I discussed risk and benefits of laparoscopic appendectomy and all indicated procedures with the possibility being a normal appendix. The patient understands the risks and benefits and wishes to proceed. Consent was signed on the chart. DESCRIPTION OF PROCEDURE: The patient was taken to the operating suite, prepped and draped in a sterile fashion. Timeout was performed. Local anesthetic was infiltrated just above the umbilicus and 11-blade scalpel was used to make a skin incision. Cautery was used to dissect down to the fascia and scored. Kochers were used to grasp and elevate it and the abdomen was then entered. A 0 Vicryl was placed in a [id number] fashion for closure at the end of the case. The balloon trocar was inserted into the abdomen and pneumoperitoneum was achieved. Under direct visualization of the laparoscope, a 5 mm trocar was placed in the suprapubic region and a 5 mm trocar was placed in the left lower quadrant. Immediately upon entering encountered copious amounts of yellowish purulent fluid. Small intes donnell was erythematous, no obvious gross contamination seen at this point. Found the appendix in the right lower quadrant, pt placed trendelenberg and rotated left to get some of the intestine out of the way. Appendix was noted to be enlarged, erythematous and inflammation all around. Able to push away all the intestine and found some necrotic adherence to the mesentery of the sigmoid colon; this directly correlated to the necrotic area on the appendix near the base at the cecum. Looking at this area, I realized this was a hole in the appendix and small amounts of fecal material was seen. Using the Ligasure, the base of the appendix was dissected around. Once at the base an Endo-KAT 2.5 stapler was then fired across the base of the appendix. The meso appendix was then divided. It was then placed in an Endobag and removed through the 12 mm trocar site. The abdomen was then irrigated with 4 liters of normal saline and suctioned. Pt had large bilateral ovarian cysts. Elected to place a 19 Setswana Obi drain in the abdomen to help drain and inform us earlier if pt develops more purulent fluid. It was pushed in through the supra-umbilical port and brought out the supra-pubic port. Sutured in place with a 3-0 nylon suture and a bulb suction was hooked up to it. The abdomen was then desufflated and the trocars were removed. The 0 Vicryl placed at the beginning of the case was then tied closing the 12 mm fascial defect. The skin was then closed using 4-0 Monocryl in a subcuticular fashion. The abdomen was then washed and dried and Skin Affix was placed over the incisions. The patient tolerated the procedure well without any complications and was taken to the recovery room in stable condition. Anesthesia Type GET Estimated Blood Loss Estimated blood loss (mL): scant Specimens/Packing Specimens Removed GB and contents Culture of abdominal fluid RONY PERLA DO Feb 08, 2021 09:08
--- NOTE | 2021-02-08 09:15 | Progress Note - Surgery ---
Subjective Time Seen by a Provider: 08:41 Subjective/Events-last exam Pt seen and examined, states she has some burning RLQ pain. Is urinating but has not had BM. She ate a little bit of her breakfast, but not much; stated she usually drinks more fluids in the morning than she eats. Nurse states she has not had another seizure. Review of Systems General: Malaise Pulmonary: No Dyspnea, No Cough Cardiovascular: No: Chest Pain, Palpitations Gastrointestinal: Abdominal Pain; No: Nausea, Vomiting Objective Exam Vital Signs Date Time Temp Pulse Resp B/P (MAP) Pulse Ox O2 Delivery O2 Flow Rate FiO2 02/08/21 07:15 36.4 107 18 109/70 (83) 90 Nasal Cannula 2.00 02/08/21 04:26 36.2 101 20 122/69 (86) 91 Room Air 02/08/21 00:06 37.3 99 16 102/58 (73) 93 Room Air 02/07/21 19:39 Nasal Cannula 6.00 02/07/21 19:37 37.0 101 18 95/55 (68) 98 High Flow N/C 6.00 02/07/21 15:35 37.1 101 16 93/52 (66) 93 High Flow N/C 6.00 02/07/21 15:30 Nasal Cannula 6 02/07/21 15:30 37 22 100/52 (68) 94 Nasal Cannula 6 02/07/21 15:20 22 96/67 (77) 94 Nasal Cannula 6 02/07/21 15:15 Nasal Cannula 6 02/07/21 15:10 36.9 24 97/62 (74) 93 Nasal Cannula 6 02/07/21 15:00 26 99/76 (84) 96 OxyMask 8 02/07/21 15:00 OxyMask 8 02/07/21 14:50 37.9 36 98/67 (77) 93 OxyMask 10 02/07/21 14:45 OxyMask 10 02/07/21 14:40 20 114/88 (97) 94 OxyMask 10 02/07/21 14:30 OxyMask 10 02/07/21 14:30 36.7 18 84/64 (71) 95 OxyMask 10 02/07/21 12:25 92 Nasal Cannula 6.00 02/07/21 12:19 37.1 97 20 107/71 (83) 91 Nasal Cannula 2.00 02/07/21 11:50 86 18 109/73 93 Nasal Cannula 2.00 02/07/21 10:00 88 Nasal Cannula 2.00 02/07/21 09:39 36.9 75 18 118/71 (87) 99 Room Air I & O 02/08/21 07:00 Intake Total 4124 ml Output Total 500 ml Balance 3624 ml Capillary Refill : Less Than 3 SecondsLess Than 3 Seconds General Appearance: No Apparent Distress, Obese Respiratory: Chest Non Tender, Lungs Clear, Normal Breath Sounds, No Accessory Muscle Use, No Respiratory Distress Cardiovascular: Regular Rate, Rhythm, No Murmur Peripheral Pulses: 2+ Radial Pulses (R), 2+ Radial Pulses (L) Gastrointestinal: soft, tenderness (Right lower quadrant tender to palpation.), other (Drain has serous fluid, incisions c/d/i) Lymphatic: No Adenopathy (neck, axilla or groin) Results Lab Laboratory Tests 02/07/21 09:47: White Blood Count 11.9H, Red Blood Count 4.97, Hemoglobin 14.4, Hematocrit 43, Mean Corpuscular Volume 87, Mean Corpuscular Hemoglobin 29, Mean Corpuscular Hemoglobin Concent 34, Red Cell Distribution Width 12.9, Platelet Count 298, Mean Platelet Volume 10.6, Immature Granulocyte % (Auto) 0, Neutrophils (%) (Auto) 77H, Lymphocytes (%) (Auto) 14, Monocytes (%) (Auto) 7, Eosinophils (%) (Auto) 1, Basophils (%) (Auto) 1, Neutrophils # (Auto) 9.2H, Lymphocytes # (Auto) 1.6, Monocytes # (Auto) 0.8, Eosinophils # (Auto) 0.2, Basophils # (Auto) 0.1, Immature Granulocyte # (Auto) 0.0, Sodium Level 139, Potassium Level 4.1, Chloride Level 104, Carbon Dioxide Level 23, Anion Gap 12, Blood Urea Nitrogen 10, Creatinine 0.67, Estimat Glomerular Filtration Rate > 60, BUN/Creatinine Ratio 15, Glucose Level 195H, Calcium Level 9.1, Corrected Calcium 9.0, Total Bilirubin 1.1H, Aspartate Amino Transf (AST/SGOT) 21, Alanine Aminotransferase (ALT/SGPT) 22, Alkaline Phosphatase 58, C-Reactive Protein High Sensitivity 6.90H, Total Protein 7.3, Albumin 4.1 02/07/21 10:16: Urine Color YELLOW, Urine Clarity CLOUDY, Urine pH 6.0, Urine Specific [place] 1.025H, Urine Protein 1+H, Urine Glucose (UA) 3+H, Urine Ketones 1+H, Urine Nitrite NEGATIVE, Urine Bilirubin NEGATIVE, Urine Urobilinogen 0.2, Urine Leukocyte Esterase TRACEH, Urine RBC (Auto) TRACE-I, Urine RBC 5-10H, Urine WBC 50-100H, Urine Squamous Epithelial Cells 25-50H, Urine Crystals NONE, Urine Bacteria MODERATEH, Urine Casts NONE, Urine Mucus NEGATIVE, Urine Yeast FEWH, Urine Culture Indicated YES 02/07/21 14:40: Glucometer 175H 02/08/21 05:39: White Blood Count 9.1, Red Blood Count 4.30, Hemoglobin 12.4, Hematocrit 38, Mean Corpuscular Volume 88, Mean Corpuscular Hemoglobin 29, Mean Corpuscular Hemoglobin Concent 33, Red Cell Distribution Width 13.4, Platelet Count 194, Mean Platelet Volume 10.2, Immature Granulocyte % (Auto) 0, Neutrophils (%) (Auto) 84H, Lymphocytes (%) (Auto) 10L, Monocytes (%) (Auto) 6, Eosinophils (%) (Auto) 0, Basophils (%) (Auto) 0, Neutrophils # (Auto) 7.6, Lymphocytes # (Auto) 0.9L, Monocytes # (Auto) 0.6, Eosinophils # (Auto) 0.0, Basophils # (Auto) 0.0, Immature Granulocyte # (Auto) 0.0, Sodium Level 136, Potassium Level 3.1L, Chloride Level 102, Carbon Dioxide Level 22, Anion Gap 12, Blood Urea Nitrogen 7, Creatinine 0.67, Estimat Glomerular Filtration Rate > 60, BUN/Creatinine Ratio 10, Glucose Level 218H, Calcium Level 8.2L Assessment/Plan Assessment/Plan Assessment/Plan Acute Appendicitis - S/P lap appy Seizures - has not had another one DM II -monitor BS, ok to start home meds Obesity B/L Ovarian Cysts Pt is encouraged to ambulate and increase PO intake (fluids more than solids at this point). She did not have an IS at bedside so I asked nurse to grab her one and encouraged her to use it. Pain is mostly controlled with the Tramadol, she stated getting in and out of bed is "hard and painful". Will keep her another day or two, so she can get IV ABX and then will probably send her home on oral ABX. Pt is ambulating and doesn't need any Lovenox at this point for VTE. RONY PERLA DO Feb 08, 2021 09:15
--- NOTE | 2021-02-08 10:20 | Discharge Inst-Surgical ---
Discharge Inst-Surgical Depart Medication/Instructions New, Converted or Re-Newed RX: RX Given to Pt/Family Patient Instructions Follow up Appt: Make appointment for 1 week. [phone] Instructions: No lifting greater than 20 pounds. No strenuous activity. May shower in 24 hours, no tub bath or soaking. Use incentive spirometer at home as directed. No Smoking Skin/Wound Care: May remove bandages in am. You need to leave the Dermabond on incision it will fall off on it's own. Symptoms to Report: Appetite Changes, Extremity Discoloration, Numbness/Tingling, Swelling Increased, Bleeding Excessive, Eyesight Changes, Pain Increased, Urine Color Change, Constipation(Persistent), Fever over 101 degree F, Pain/Pressure in chest, Urinating Difficulty, Cough Up/Vomit Blood, Heart Beat Irreg/Pounding, Pain/Pressure in jaw, Cramps in feet or legs, Lightheadedness, Pain/Pressure in shoulder, Diarrhea(Persistent), Memory Changes Suddenly, Questions/Concerns, Weight gain consecutive days, Dizziness/Fainting, Nausea/Vomiting, Shortness of Breath, Weight gain over 2 pounds If questions or concerns contact your physician Or seek help at emergency department. Activity Activity as Tolerated: Yes Activity Instructions: Avoid Stress to Incision Driving Instructions: No Driving/Refer to Dr. Boss Discharge Diet: No Restrictions Diet After 24 Hours: Clear Liquid if Nauseous If Any Problems/Questions/Issu: Contact Your Physician, Go to Emergency Room Skin/Wound Care Infection Signs and Symptoms: Increased Redness, Foul Odor of Wound, Increased Drainage, Skin Itchy or Has a Rash, Increased Swelling, Temperature Above 101 F Wound Care Comment: DANO drain teaching, how to record output and what to watch for Bathing Instructions: Shower Stitches/[place]/Dermabond Dis: Dermabond RONY PERLA DO Feb 08, 2021 10:20
[2021-02-08] MEDS ORDERED: PANT40TA52 PO (11:33)
[2021-02-08] MEDS ORDERED: TRZ50T PO (11:33)
[2021-02-08] MEDS ORDERED: INSU300I3 SC (11:33)
[2021-02-08] MEDS ORDERED: BUSP15TA60 PO (11:33)
[2021-02-08] MEDS ORDERED: IBUP-2185 PO (11:33)
[2021-02-08] MEDS ORDERED: FENO160T12 PO (11:33)
[2021-02-08] MEDS ORDERED: PROP40TA5 PO (11:33)
[2021-02-08] MEDS ORDERED: BUTA1CAP3 PO (11:33)
[2021-02-08] MEDS ORDERED: ROSU40TA23 PO (11:33)
[2021-02-08] MEDS ORDERED: ESCI20TA39 PO (11:33)
[2021-02-08] MEDS ORDERED: MELO15TA39 PO (11:33)
[2021-02-08] MEDS ORDERED: DAPA10TA PO (11:33)
[2021-02-08] MEDS ORDERED: DIPH25TA65 PO (11:33)
[2021-02-08] MEDS ORDERED: DULA1.5P2 SC (11:33)
[2021-02-08] MEDS: LACTATED RINGERS 1,000 ML IV SCH ×2 (12:42→20:43)
[2021-02-09] MEDS: HYDROmorphone 2 MG/ML VIAL (DILAUDID) IV PRN (03:15)
[2021-02-09 04:34] VITALS: BP 128/71
[2021-02-09] MEDS: LACTATED RINGERS 1,000 ML IV SCH (06:30)
[2021-02-09] MEDS: PIPERACILLIN/TAZOBACTAM (BULK) 4.5 GM in NS (IVPB) 100 ML IV SCH (06:35)
[2021-02-09 08:13] VITALS: BP 121/69
[2021-02-09 10:45] VITALS: BP 123/71
[2021-02-09] MEDS ORDERED: ACHD5005 PO (11:41)
[2021-02-09] MEDS ORDERED: AMOX-358 PO (11:41)
--- NOTE | 2021-02-09 11:50 | Progress Note - Surgery ---
Subjective Date Seen by a Provider: Feb 09, 2021 Time Seen by a Provider: 09:39 Subjective/Events-last exam Patient states that she is feeling better. She is not having any nausea or vomiting. Patient has some abdominal discomfort but this is improving. Patient is passing flatus. She is using the incentive spirometer some. She is ambulating. she is tolerating regular diet. Patient continues to feel better she states. Denies any nausea vomiting fever sweats chills shortness of breath or chest pain at this time. Drain is serosanguineous Objective Exam Vital Signs Date Time Temp Pulse Resp B/P (MAP) Pulse Ox O2 Delivery O2 Flow Rate FiO2 02/09/21 10:45 37.0 87 123/71 (88) 93 Room Air 02/09/21 08:13 37.6 108 18 121/69 (86) 94 Nasal Cannula 1.00 02/09/21 07:43 Nasal Cannula 2.00 02/09/21 04:34 37.4 106 18 128/71 (90) 91 Nasal Cannula 2.00 02/08/21 23:55 37.1 116 18 122/72 (89) 90 Nasal Cannula 2.00 02/08/21 20:30 Nasal Cannula 2.00 02/08/21 19:25 36.4 111 18 137/65 (89) 92 Nasal Cannula 2.00 02/08/21 15:43 36.8 107 18 118/65 (82) 93 Nasal Cannula 2.00 I & O 02/09/21 07:00 Intake Total 2660 ml Output Total 180 ml Balance 2480 ml Capillary Refill : Less Than 3 SecondsLess Than 3 Seconds General Appearance: No Apparent Distress, Obese HEENT: PERRL/EOMI Neck: Normal Inspection, Non Tender Respiratory: Chest Non Tender, No Accessory Muscle Use, No Respiratory Distress Cardiovascular: Regular Rate, Rhythm, No JVD, No Murmur Peripheral Pulses: 2+ Radial Pulses (R), 2+ Radial Pulses (L) Gastrointestinal: soft, tenderness (Right lower quadrant tender to palpation, incisions clean dry intact drain serosanguineous) Extremity: Normal Inspection, Normal Range of Motion, Non Tender Neurologic/Psychiatric: Alert, Oriented x3 Skin: Normal Color, Warm/Dry Results Lab Microbiology 02/07/21 Gram Stain - Final, Resulted 02/07/21 Anaerobic Culture, Resulted Pending 02/07/21 Surgical Culture - Preliminary, Resulted Culture In Progress Probable E.coli 02/07/21 Urine Culture - Final, Complete Lactobacillus species YEAST Strep agalactiae Group B Assessment/Plan Assessment/Plan Assessment/Plan Acute Appendicitis - S/P lap appy Seizures - has not had another one DM II -monitor BS, ok to start home meds Obesity B/L Ovarian Cysts Patient feeling better. She is tolerating diet. She has been afebrile and tolerating diet. Instructed to continue to use incentive spirometer. Instructed that when drain is less than 30 mL in 24 hours needs to call the office to have removed. JODY CLINE DO Feb 09, 2021 11:50
[2021-02-09 12:58] VITALS: BP 133/86
== END 2021-02-09 13:30 | disposition home or self-care (01) ==
LOC: EDUNIT# 09:37 → ER 09:40 → UNDOADMOB 11:30 → 4TH 11:30 → SDC 11:30 → UNDODISOB 02-09 13:30 → SDC 02-09 13:30
PROVIDERS: ATTEND Surgery
DX: K35.32 Acute appendicitis with perforation, localized peritonitis, and gangrene, without abscess (principal); N83.202 Unspecified ovarian cyst, left side; N83.201 Unspecified ovarian cyst, right side; G40.909 Epilepsy, unspecified, not intractable, without status epilepticus; E78.5 Hyperlipidemia, unspecified; E11.9 Type 2 diabetes mellitus without complications; Z79.4 Long term (current) use of insulin; Z79.899 Other long term (current) drug therapy; Z95.1 Presence of aortocoronary bypass graft; Z90.710 Acquired absence of both cervix and uterus; Z90.49 Acquired absence of other specified parts of digestive tract
CPT/HCPCS: 36415; 74177; 80048; 80053; 81000; 82947; 85025; 86141; 87070; 87075; 87076; 87077; 87088; 87185; 87186; 87205; 88304; 96374; 96375